=== PATIENT | female | born 1935 | race Caucasian/White ===

== ENCOUNTER 2017-10-28 05:22 | Emergency (ER) | payer BC ==
[~2017-10-28] VITALS: Ht 160 cm; Wt 79.2 kg
[2017-10-28 05:29] VITALS: TEMP 37.2; Ht 160 cm; Wt 79.2 kg
[2017-10-28 05:35] VITALS: O2SAT 95
[2017-10-28] MEDS ORDERED: SODIUM CHLORIDE 0.9% 500ML 500 ML IV STA (05:35)
--- NOTE | 2017-10-28 05:38 | EMERGENCY ROOM VISIT NOTE ---
History Report prepared by Vibha: Xiomy Larson Under the Supervision of: Dr. Luisa Pringle D.O. 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 She reports her fell out of bed and cut his head. When she got out of bed to help, she got up too quickly and became lightheaded. She went to her bathroom to get a washcloth and when she was cleaning his forehead, she passed out. She notes she only ate toast throughout the day and spent most of today lying on the couch. She states she went to the doctor 5 days bellhop captain due to a rash and feeling like she had the flu in the evenings with hot spells and cold chills.. The patient is currently taking hydrochlorothiazide. Source of History: patient Onset: around 1 hour bellhop captain Position: other (global) Quality: other (syncopal episode) Associated Symptoms: + weakness Review of Systems See HPI for pertinent positives & negatives. A total of 10 systems reviewed and were otherwise negative. Past Medical & Surgical Medical Problems: (1) No significant past medical history Hypertension Hyperlipidemia Diabetes Family History No pertinent family history Social History Smoking Status: Unknown if Ever Smoked Smokeless Tobacco Use: Unknown Marital Status: Housing Status: lives with significant other Occupation Status: retired Current/Historical Medications Scheduled Aspirin (Aspirin Ec), 81 MG PO DAILY Atorvastatin (Lipitor), 40 MG PO DAILY Cholecalciferol (Vitamin D 400 Iu), 400 INTER.UNIT PO DAILY Felodipine (Felodipine ER), 5 MG PO DAILY Hydrochlorothiazide (Hctz), 12.5 MG PO DAILY Hydrocortisone (Hydrocortisone 2.5%), 1 APPLN TOP TID Insulin Glargine (Lantus Solostar), 15 UNITS SC HS Losartan Potassium (Cozaar), 25 MG PO DAILY Magnesium Oxide (Mg Supplement (Magnesium), 500 MG PO DAILY Metformin Hcl (Glucophage), 1,000 MG PO BID Repaglinide (Prandin), 4 MG PO BIDM Repaglinide (Prandin), 2 MG PO with a snack Sertraline (Zoloft), 25 MG PO DAILY Scheduled PRN Hydroxyzine HCl (Hydroxyzine HCl), 25 MG PO Q6 PRN for Itching Allergies Coded Allergies: No Known Allergies (Unverified , 10/28/17) Physical Exam Vital Signs Date Time Temp Pulse Resp B/P (MAP) Pulse Ox O2 Delivery O2 Flow Rate FiO2 10/28/17 05:49 101 18 141/88 99 153/94 110 137/85 10/28/17 05:49 101 18 141/88 96 Room Air 10/28/17 05:39 108 10/28/17 05:35 95 Room Air 10/28/17 05:29 37.2 109 18 153/102 94 Room Air Physical Exam General: Pale in appearance. HEENT: Head - normocephalic and atraumatic Pupils are equal, round, and reactive to light. Extraocular eye muscles are intact, and sclera are anicteric. Nose - moist nasal mucosa without discharge. Mouth - moist buccal mucosa. Oropharynx is nonerythematous and there is no tonsillar exudate or edema noted. Neck: Supple; no JVD, nuchal rigidity, cervical lymphadenopathy, no auscultated bruits. Heart: Regular rate and rhythm. There is a normal S1 and S2 with no murmurs, clicks, or gallops appreciated. Lungs: Clear to auscultation bilaterally with no wheezes, rales, or rhonchi. Abdomen: Soft, completely nontender, nondistended, with good bowel sounds. There are no palpable pulsatile masses or hepatosplenomegaly. There is no guarding, rigidity, or rebound noted. Extremities: No evidence of cyanosis, clubbing, or edema. There are easily palpable peripheral pulses. Skin: warm and dry with good turgor and no rashes. Medical Decision & Procedures Laboratory Results 10/28/17 05:45 Red Blood Count 4.82, Mean Corpuscular Volume 83.2, Mean Corpuscular Hemoglobin 28.4, Mean Corpuscular Hemoglobin Concent 34.2, Mean Platelet Volume 11.0, Neutrophils (%) (Auto) 74.4, Lymphocytes (%) (Auto) 17.6, Monocytes (%) (Auto) 6.6, Eosinophils (%) (Auto) 0.9, Basophils (%) (Auto) 0.2, Neutrophils # (Auto) 6.47, Lymphocytes # (Auto) 1.53, Monocytes # (Auto) 0.57, Eosinophils # (Auto) 0.08, Basophils # (Auto) 0.02 10/28/17 05:45 Test 10/28/17 05:45 White Blood Count 8.70 K/uL (4.8-10.8) Red Blood Count 4.82 M/uL (4.2-5.4) Hemoglobin 13.7 g/dL (12.0-16.0) Hematocrit 40.1 % (37-47) Mean Corpuscular Volume 83.2 fL (80-100) Mean Corpuscular Hemoglobin 28.4 pg (25-34) Mean Corpuscular Hemoglobin Concent 34.2 g/dl (32-36) Platelet Count 187 K/uL (130-400) Mean Platelet Volume 11.0 fL (7.4-10.4) Neutrophils (%) (Auto) 74.4 % Lymphocytes (%) (Auto) 17.6 % Monocytes (%) (Auto) 6.6 % Eosinophils (%) (Auto) 0.9 % Basophils (%) (Auto) 0.2 % Neutrophils # (Auto) 6.47 K/uL (1.4-6.5) Lymphocytes # (Auto) 1.53 K/uL (1.2-3.4) Monocytes # (Auto) 0.57 K/uL (0.11-0.59) Eosinophils # (Auto) 0.08 K/uL (0-0.5) Basophils # (Auto) 0.02 K/uL (0-0.2) RDW Standard Deviation 39.0 fL (36.4-46.3) RDW Coefficient of Variation 12.9 % (11.5-14.5) Immature Granulocyte % (Auto) 0.3 % Immature Granulocyte # (Auto) 0.03 K/uL (0.00-0.02) Anion Gap 11.0 mmol/L (3-11) Est Creatinine Clear Calc Drug Dose 53.3 ml/min Estimated GFR () 78.4 Estimated GFR (Non- 67.6 BUN/Creatinine Ratio 15.7 (10-20) Calcium Level 9.2 mg/dl (8.5-10.1) Total Bilirubin 0.5 mg/dl (0.2-1) Direct Bilirubin 0.2 mg/dl (0-0.2) Aspartate Amino Transf (AST/SGOT) 55 U/L (15-37) Alanine Aminotransferase (ALT/SGPT) 27 U/L (12-78) Alkaline Phosphatase 68 U/L (45-117) Troponin I < 0.015 ng/ml (0-0.045) Total Protein 7.6 gm/dl (6.4-8.2) Albumin 3.2 gm/dl (3.4-5.0) Thyroid Stimulating Hormone (TSH) 0.842 uIu/ml (0.300-4.500) Laboratory results per my review. Medications Administered Medications (Trade) Dose Ordered Sig/Caren Route Start Time Stop Time Status Last Admin Dose Admin Sodium Chloride 500 ml @ 999 mls/hr Q31M STAT IV 10/28/17 05:35 10/28/17 06:05 DC 10/28/17 05:35 999 MLS/HR Procedure NSS IV ECG Per My Interpretation Indication: syncope Rate (beats per minute): 107 Rhythm: sinus tachycardia Findings: Q waves (Inferior), no acute ischemic change, other (no obvious ST segment elevation) Comparison ECG Date: 08/2013 Change: no significant change ED Course 0528: Past medical records reviewed. The patient was evaluated in room B9. A complete history and physical exam was performed. Nursing notes and previous electronic medical records were reviewed. IV lock was established and labs were drawn as above. A 12-lead EKG was obtained as described above. 0535: Ordered Sodium Chloride 500 ml @ 999 mls/hr IV. 0648: I checked on the patient at this time. She is feeling much better. She is going to try to drink and eat. 0709: Upon reevaluation, the patient's vitals are stable. She was able to drink mayuri devante and eat crackers without difficulty. I discussed findings and results with her. She verbalized agreement of the treatment plan. She was discharged home. Medical Decision The patient is a 82 year old female who presents to the Emergency Room with complaints of a syncopal episode beginning around 1 hour bellhop captain. Differential diagnosis includes vasovagal syncope, dehydration, orthostasis, anemia, as well as others were entertained. Lab results show No leukocytosis Stable H and H Potassium is low at 3.1 Normal renal function Glucose 164 Troponin is negative Normal TSH Normal LFTs This is an 82-year-old female patient presents to the emergency department after an episode of syncope. The patient had been weak and not feeling well over the past couple of days. She spent most of the day on the couch yesterday. The patient had only eaten toast throughout the day today. It seems that the patient got up quickly when her fell to the ground and then she had a syncopal event herself. The patient had orthostatic vital signs performed in her heart rate did elevate when she stood up. She received some IV fluids here in the emergency department which brought her heart rate down nicely. The patient is resting comfortably at this time. She was able to eat and drink without difficulty. I have asked the patient to take a well-balanced diet and plenty of clear liquids. She is to follow-up with her PCP tomorrow for recheck Medication Reconcilliation Current Medication List: was personally reviewed by me Blood Pressure Screening Patient's blood pressure: Elevated blood pressure Blood pressure disposition: Elevated BP felt to be situational Impression Primary Impression: Syncope Scribe Attestation The scribe's documentation has been prepared under my direction and personally reviewed by me in its entirety. I confirm that the note above accurately reflects all work, treatment, procedures, and medical decision making performed by me. Departure Information Dispostion Home / Self-Care Referrals No Doctor, Assigned (PCP) Forms HOME CARE DOCUMENTATION FORM, IMPORTANT VISIT INFORMATION Patient Instructions My [facility] Additional Instructions Rest. Take plenty of clear liquids and a well-blanced diet. Move slowly. Follow up with PCP on Sunday for a recheck. Return to the ER if you have further episodes of passing out. Problem Qualifiers Primary Impression: Syncope Syncope type: unspecified Qualified Codes: R55 - Syncope and collapse
[2017-10-28 06:05] LABS: BASO % 0.2 %; BASO ABS # 0.02 K/uL (0-0.2); EOS % 0.9 %; EOS ABS # 0.08 K/uL (0-0.5); HEMATOCRIT 40.1 % (37-47); HEMOGLOBIN 13.7 g/dL (12.0-16.0); IG# 0.03 K/uL (0.00-0.02); LYMPH % 17.6 %; LYMPH ABS # 1.53 K/uL (1.2-3.4); MEAN CELL VOLUME 83.2 fL (80-100); MEAN CORPUSCULAR HEMOGLOBIN 28.4 pg (25-34); MEAN CORPUSCULAR HGB CONC 34.2 g/dl (32-36); MONO % 6.6 %; MONO ABS # 0.57 K/uL (0.11-0.59); NEUT % 74.4 %; NEUT ABS # 6.47 K/uL (1.4-6.5); PLATELET COUNT 187 K/uL (130-400); RED CELL DISTRIBUTION WIDTH CV 12.9 % (11.5-14.5)
[2017-10-28] MEDS ORDERED: CHOL400C7 PO (06:19)
[2017-10-28] MEDS ORDERED: ASPI81TA28 PO (06:19)
[2017-10-28] MEDS ORDERED: INSDGIPEN SC (06:21)
[2017-10-28] MEDS ORDERED: PLN5 PO (06:21)
[2017-10-28] MEDS ORDERED: LPT/40 PO (06:21)
[2017-10-28] MEDS ORDERED: METF-384 PO (06:21)
[2017-10-28] MEDS ORDERED: LOSA1TAB PO (06:24)
[2017-10-28] MEDS ORDERED: REPA2TAB12 PO ×2 (06:24)
[2017-10-28] MEDS ORDERED: SERT25TA PO (06:24)
[2017-10-28] MEDS ORDERED: MAGN500C PO (06:24)
[2017-10-28] MEDS ORDERED: HYDR25TA4 PO (06:25)
[2017-10-28] MEDS ORDERED: ATR25 PO (06:26)
[2017-10-28] MEDS ORDERED: ANSHCCR/ TOP (06:27)
[2017-10-28 06:31] LABS: ALBUMIN 3.2 gm/dl (3.4-5.0); ALKALINE PHOSPHATASE 68 U/L (45-117); ALT/SGPT 27 U/L (12-78); AST/SGOT 55 U/L (15-37); BLOOD UREA NITROGEN 13 mg/dl (7-18); CALCIUM 9.2 mg/dl (8.5-10.1); CARBON DIOXIDE 27 mmol/L (21-32); CREATININE 0.81 mg/dl (0.60-1.20); GLUCOSE 164 mg/dl (70-99); POTASSIUM 3.1 mmol/L (3.5-5.1); SODIUM 138 mmol/L (136-145); TOTAL PROTEIN 7.6 gm/dl (6.4-8.2)
[2017-10-28 07:30] VITALS: BP 136/83; PULSE 96; O2SAT 96
== END 2017-10-28 07:51 | disposition home or self-care (01) ==
LOC: EDBD 05:22 → C.EDB 05:23
DX: R55 Syncope and collapse (principal); I10 Essential (primary) hypertension; E11.9 Type 2 diabetes mellitus without complications; E78.5 Hyperlipidemia, unspecified; Z79.4 Long term (current) use of insulin; Z79.899 Other long term (current) drug therapy; Z79.82 Long term (current) use of aspirin; Z79.84 Long term (current) use of oral hypoglycemic drugs

== ENCOUNTER 2023-01-17 16:12 | Inpatient (IN) ==
[2023-01-17] MEDS ORDERED: ACETAMINOPHEN 500 MG TAB PO STA (16:28)
[2023-01-17] MEDS ORDERED: ONDANSETRON INJ 2 MG/ML 2 ML VIAL IV STA (16:28)
--- NOTE | 2023-01-17 17:31 | CT Scan Report ---
CT abd pelvis wo con CLINICAL HISTORY: left flank pain TECHNIQUE: Helical axial images of the abdomen and pelvis were obtained. Automated dose lowering tech niques and/or adjustment according to patient size were utilized for this exam. This exam was perfor med without intravenous contrast. CT DOSE: 1090.09 mGy.cm COMPARISON: None available at the time of this dictation. FINDINGS: Lower chest: Bronchiectasis is seen. Biatrial enlargement is seen. Mitral annular calcifications are noted. Liver: Unremarkable. No focal lesions are seen. Gallbladder and biliary tree: No calcified gallstones. Normal caliber wall. No intra- or extrahepatic biliary ductal dilation. Pancreas: Unremarkable, no focal lesions. Spleen: Unremarkable. Adrenals: Unremarkable. Kidneys and ureters: Left hydronephrosis is seen with a 8 mm stone at the pelvis. Bladder: Unremarkable. Reproductive organs: Unremarkable. Bowel: Diverticulosis is seen without evidence of diverticulitis. Patient is status post appendectomy . A hiatal hernia is seen. Lymph nodes Retroperitoneal: Unremarkable. Pelvic: Unremarkable. Mesenteric: Unremarkable. Peritoneum: Normal. Vessels: Atherosclerotic calcifications are seen. Abdominal wall: Unremarkable. Bones: Degenerative changes in the visualized spine. IMPRESSION: 1. Left hydronephrosis with a UPJ stone measuring 8 mm. 2. Diverticulosis without diverticulitis. 3. Hiatal hernia. ACT 112: Negative or not required by law. Electronically signed by: Kelby Dinh M.D. 01/17/2023 5:29 PM
[2023-01-17 18:30] LABS: Basophils # (auto) 0.03 K/uL (0.00-0.20); Basophils % (auto) 0.2 %; Eosinophils # (auto) 0.04 K/uL (0.00-0.50); Eosinophils % (auto) 0.3 %; Hematocrit (blood only) 48.9 % (37.0-47.0); Hemoglobin 16.2 g/dl (12.0-16.0); Immature Granulocytes # (auto) 0.06 K/uL (0.01-0.20); Immature Granulocytes % (auto) 0.5 %; Lymphocytes # (auto) 1.63 K/uL (1.20-3.40); Lymphocytes % (auto) 12.6 %; Mean Corpuscular Hemoglobin 28.9 pg (25.0-34.0); Mean Corpuscular Hgb Conc 33.1 g/dL (32.0-36.0); Mean Corpuscular Volume 87.2 fL (80.0-100.0); Monocytes # (auto) 0.66 K/uL (0.11-0.59); Monocytes % (auto) 5.1 %; Neutrophils # (auto) 10.53 K/uL (1.40-6.50); Neutrophils % (auto) 81.3 %; Platelet Count 265 K/uL (130-400); RDW Coefficient of Variation 12.2 % (11.5-14.5); Red Blood Count 5.61 M/uL (4.20-5.40); White Blood Count 12.95 K/ul (4.8-10.8)
[2023-01-17 18:41] LABS: Alanine Aminotransferase 9 U/L (7-52); Albumin Globulin Ratio 1.3 (0.9-2); Albumin Level 4.5 gm/dl (3.4-5.0); Alkaline Phosphatase 83 U/L (34-104); Anion Gap 7 (3-11); Aspartate Aminotransferase 15 U/L (13-39); Bilirubin,Total 0.5 mg/dl (0.2-1.0); Blood Urea Nitrogen 19 mg/dl (6-23); Calcium 10.1 mg/dl (8.6-10.3); Carbon Dioxide 28 mmol/L (21-32); Chloride 106 mmol/L (98-107); Est GFR (African American) 58.7 ml/min; Est GFR (Non-African American) 50.6 ml/min; Globulin 3.5 gm/dl (2.5-4.0); Glucose 148 mg/dl (70-99(Fasting)); Lipase 41 U/L (11-82); Potassium 3.7 mmol/L (3.5-5.1); Sodium 141 mmol/L (136-145)
[2023-01-17] MEDS ORDERED: oxyCODONE HCL IR 5 MG TAB (IMMEDIATE RELEASE) PO STA ×2 (19:07→20:55)
[2023-01-17] MEDS ORDERED: ONDANSETRON 4 MG OD TAB PO STA (19:07)
[2023-01-17 19:17] LABS: Appearance Urine Cloudy (Clear); Bacteria Urine Automated 4+ (Negative); Bilirubin Urine Negative (Negative); Blood Urine 3+ (Negative); Cast Urine Automated 0 /lpf (0-5); Color Urine Orange; Glucose Urine UA 3+ (Negative); Ketones Urine Negative (Negative); Leukocyte Esterase Urine Negative (Negative); Nitrite Urine Positive (Negative); Protein Urine 1+ (Negative); RBC Urine Automated >30 /hpf (0-4); Specific Gravity Urine 1.033 (1.000-1.030); Urobilinogen Urine Negative (Negative); pH Urine 5.5 (4.5-7.5)
--- NOTE | 2023-01-17 19:24 | Emergency Department Note ---
Impression & Plan Renal colic, Flank Pain, Hydronephrosis, UTI (urinary tract infection), Leukocytosis ED Provider Note NAME: JR DOYLE AGE: 87 SEX: F : 1935 ARRIVES VIA: Walk-In INFORMANT: Patient ED PROVIDER(S): Bennie Bird DO CHIEF COMPLAINT: left flank pain HPI: Patient is an 87-year-old female who presents to the ER for left flank pain. This started around lunchtime today. It radiates to her left abdomen. She admits to some slight nausea. She has been taking Motrin but notes that this only helped slightly with the pain. Denies any headache or change in v ision. No chest pain or shortness of breath. No dysuria, urgency, or frequency. No blood in the urine. Does have a history of previous kidney stones. This was about 50 years ago. No other exacerbating or remitting factors. ADDITIONAL HISTORY OBTAINED: Per HPI Chronic Medical/Social Conditions Affecting Care: Per HPI PAST MEDICAL HISTORY:See Below PAST SURGICAL HISTORY:See Below FAMILY HISTORY:See Below SOCIAL HISTORY:See Below HOME MEDICATIONS:See Below ALLERGIES:See Below VITALS:See Below PHYSICAL EXAMINATION: GENERAL: Sitting up in bed, alert, well appearing, well nourished, no distress, non-toxic EYE EXAM: normal conjunctiva. OROPHARYNX: no exudate, no erythema, lips, buccal mucosa, and tongue normal and mucous membranes are moist NECK: supple, no nuchal rigidity, no adenopathy, non-tender LUNGS: Clear to auscultation. Normal chest wall mechanics HEART: no murmurs, S1 normal and S2 normal ABDOMEN: abdomen soft, non-tender, normo-active bowel sounds, no masses, no rebound or guarding. BACK: Back is symmetrical on inspection and there is no deformity, no midline tenderness, no CVA tenderness. UPPER EXTREMITIES: upper extremities are grossly normal. LOWER EXTREMITIES: No pitting edema. NEURO EXAM: Normal sensorium, cranial nerves II-XII grossly intact, normal speech, no gross weakness of arms, no gross weakness of legs. MEDICAL DECISION MAKING: Patient is a an 87-year-old female who presents ER for above-stated complaint. IV was established blood work is obtained. Labs show mild leukocytosis of 12,000. No significant anemia. BMP along with LFTs bilirubin lipase is unremarkable. UA with nitrates, white cells and +4 bacteria with a slightly contaminated urine with only 10-20 epithelial cells. With this patient was given IV fluids, and IV antibiotics. I did update urology as well as the hospitalist and patient was admitted for further evaluation for renal colic with hydronephrosis and possible UTI. External Records Reviewed: None Consults/Care Managements Discussions: Per MDM Triage Nursing notes reviewed. Limited review of prior medical records performed Vital Signs: reviewed and remarkable for HTN Differential diagnosis: Differential diagnoses includes but is not limited to gastritis, peptic ulcer disease, GERD, gallbladder disease, pancreatitis, small bowel obstruction, appendicitis, diverticulitis, hernia, urinary tract infection, torsion,, perforation, trauma, infectious. ER treatment provided: See below Diagnostics interpreted by me include EKG and cardiac monitoring as listed below: -ECG: none -Laboratory studies:Interpreted by me as stated above in MDM and shown below. Imaging studies: Xrays: As interpreted by me:none CTs show: CT abdomen pelvis per my read showed hydronephrosis CT abdomen pelvis per radiology as described above Procedures:none Critical Care: None Past Med/Surg History Social History Smoking Status: Never smoker Preferred Language: Uzbek Feels Safe at Home: Yes Allergies Allergies Allergy/AdvReac Type Severity Reaction Status Date / Time No Known Allergies Allergy Unverified 01/17/23 20:29 Home Meds Home Medications Medication Instructions Recorded Confirmed Collagen Hydrolysate 1 dose PO DAILY 01/17/23 01/17/23 ascorbic acid (vitamin C) 500 mg 500 mg PO DAILY 01/17/23 01/17/23 chewable tablet (Vitamin C) cholecalciferol (vitamin D3) 10 10 mcg PO DAILY 01/17/23 01/17/23 mcg (400 unit) tablet (Vitamin D3) cyanocobalamin (vitamin B-12) 1,000 mcg PO DAILY 01/17/23 01/17/23 1,000 mcg tablet (Vitamin B-12) empagliflozin 25 mg tablet 25 mg PO DAILY 01/17/23 01/17/23 (Jardiance) famotidine 20 mg tablet 20 mg PO AMHS 01/17/23 01/17/23 felodipine 5 mg tablet,extended 5 mg PO QAM 01/17/23 01/17/23 release 24 hr fluoxetine 20 mg capsule 20 mg PO DAILY 01/17/23 01/17/23 insulin glargine 100 unit/mL (3 15 unit subcut QPM 01/17/23 01/17/23 mL) subcutaneous pen (Lantus Solostar U-100 Insulin) losartan 25 mg tablet 25 mg PO QAM 01/17/23 01/17/23 omeprazole 20 mg capsule,delayed 20 mg PO QAM 01/17/23 01/17/23 release semaglutide 0.25 mg or 0.5 mg (2 0.5 mg subcut WE 01/17/23 01/17/23 mg/3 mL) subcutaneous pen injector (Ozempic) triamcinolone acetonide 0.1 % 1 applic topical BID PRN .flare ups 01/17/23 01/17/23 topical cream trolamine salicylate 10 % topical 1 applic topical QID PRN Pain 01/17/23 01/17/23 cream (Aspercreme) Results & Data (ED) Vital Signs Vital Signs - 24 hr 01/17/23 16:26 01/17/23 19:21 Temperature 36.6 C Temperature Source Temporal Artery Scan Pulse Rate 83 Pulse Rate [Right Finger] 86 Respiratory Rate 16 16 Respiratory Effort / Characteristics Non-Labored Spontaneous Non-Labored Spontaneous Respiratory Depth Normal Normal Respiratory Pattern Regular Blood Pressure 198/100 H Blood Pressure [Right Arm] 166/109 H Blood Pressure Mean 132 Blood Pressure Mean [Right Arm] 128 Pulse Oximetry 98 97 Oxygen Delivery Method Room Air Room Air Sepsis Recent Fever Within 48 Hours No Sepsis New/Unexplained Change in Mental Status No Sepsis Action Taken by Nursing No Action Required Laboratory Data 01/17/23 18:08 01/17/23 18:08 Lab Results 01/17/23 01/17/23 01/17/23 Range/Units 16:29 18:08 18:08 WBC 12.95 H (4.8-10.8) K/ul RBC 5.61 H (4.20-5.40) M/uL Hgb 16.2 H (12.0-16.0) g/dl Hct 48.9 H (37.0-47.0) % MCV 87.2 (80.0-100.0) fL MCH 28.9 (25.0-34.0) pg MCHC 33.1 (32.0-36.0) g/dL RDW Std Deviation 39.0 (36.4-46.3) fL RDW Coeff of Augustina 12.2 (11.5-14.5) % Plt Count 265 (130-400) K/uL MPV 11.0 (9.4-12.4) fL Immature Gran % (Auto) 0.5 % Neut % (Auto) 81.3 % Lymph % (Auto) 12.6 % [place] % (Auto) 5.1 % Eos % (Auto) 0.3 % Baso % (Auto) 0.2 % Neut # (Auto) 10.53 H (1.40-6.50) K/uL Lymph # (Auto) 1.63 (1.20-3.40) K/uL [place] # (Auto) 0.66 H (0.11-0.59) K/uL Eos # (Auto) 0.04 (0.00-0.50) K/uL Baso # (Auto) 0.03 (0.00-0.20) K/uL Immature Gran # (Auto) 0.06 (0.01-0.20) K/uL Sodium 141 (136-145) mmol/L Potassium 3.7 (3.5-5.1) mmol/L Chloride 106 (98-107) mmol/L Carbon Dioxide 28 (21-32) mmol/L Anion Gap 7 (3-11) BUN 19 (6-23) mg/dl Creatinine 1.00 (0.6-1.2) mg/dl Est Cr Clr Drug Dosing Not Reportable Est GFR ( Amer) 58.7 ml/min Est GFR (Non-Af Amer) 50.6 ml/min BUN/Creatinine Ratio 19.0 (10-20) Glucose 148 H (70-99(Fasting)) mg/dl POC Glucose 205 H (70-99) mg/dl Calcium 10.1 (8.6-10.3) mg/dl Total Bilirubin 0.5 (0.2-1.0) mg/dl AST 15 (13-39) U/L ALT 9 (7-52) U/L Alkaline Phosphatase 83 (34-104) U/L Total Protein 8.0 (6.0-8.3) gm/dl Albumin 4.5 (3.4-5.0) gm/dl Globulin 3.5 (2.5-4.0) gm/dl Albumin/Globulin Ratio 1.3 (0.9-2) Lipase 41 (11-82) U/L Urine Color Urine Appearance (Clear) Urine pH (4.5-7.5) Ur Specific [place] (1.000-1.030) Urine Protein (Negative) Urine Glucose (UA) (Negative) Urine Ketones (Negative) Urine Blood (Negative) Urine Nitrite (Negative) Urine Bilirubin (Negative) Urine Urobilinogen (Negative) Ur Leukocyte Esterase (Negative) Urine WBC (Auto) (0-5) /hpf Urine RBC (Auto) (0-4) /hpf U Hyaline Cast (Auto) (0-5) /lpf U Epithel Cells (Auto) (0-5) /lpf Urine Bacteria (Auto) (Negative) 01/17/23 Range/Units 19:01 WBC (4.8-10.8) K/ul RBC (4.20-5.40) M/uL Hgb (12.0-16.0) g/dl Hct (37.0-47.0) % MCV (80.0-100.0) fL MCH (25.0-34.0) pg MCHC (32.0-36.0) g/dL RDW Std Deviation (36.4-46.3) fL RDW Coeff of Augustina (11.5-14.5) % Plt Count (130-400) K/uL MPV (9.4-12.4) fL Immature Gran % (Auto) % Neut % (Auto) % Lymph % (Auto) % [place] % (Auto) % Eos % (Auto) % Baso % (Auto) % Neut # (Auto) (1.40-6.50) K/uL Lymph # (Auto) (1.20-3.40) K/uL [place] # (Auto) (0.11-0.59) K/uL Eos # (Auto) (0.00-0.50) K/uL Baso # (Auto) (0.00-0.20) K/uL Immature Gran # (Auto) (0.01-0.20) K/uL Sodium (136-145) mmol/L Potassium (3.5-5.1) mmol/L Chloride (98-107) mmol/L Carbon Dioxide (21-32) mmol/L Anion Gap (3-11) BUN (6-23) mg/dl Creatinine (0.6-1.2) mg/dl Est Cr Clr Drug Dosing Est GFR ( Amer) ml/min Est GFR (Non-Af Amer) ml/min BUN/Creatinine Ratio (10-20) Glucose (70-99(Fasting)) mg/dl POC Glucose (70-99) mg/dl Calcium (8.6-10.3) mg/dl Total Bilirubin (0.2-1.0) mg/dl AST (13-39) U/L ALT (7-52) U/L Alkaline Phosphatase (34-104) U/L Total Protein (6.0-8.3) gm/dl Albumin (3.4-5.0) gm/dl Globulin (2.5-4.0) gm/dl Albumin/Globulin Ratio (0.9-2) Lipase (11-82) U/L Urine Color [place] Urine Appearance Cloudy A (Clear) Urine pH 5.5 (4.5-7.5) Ur Specific [place] 1.033 H (1.000-1.030) Urine Protein 1+ H (Negative) Urine Glucose (UA) 3+ H (Negative) Urine Ketones Negative (Negative) Urine Blood 3+ H (Negative) Urine Nitrite Positive A (Negative) Urine Bilirubin Negative (Negative) Urine Urobilinogen Negative (Negative) Ur Leukocyte Esterase Negative (Negative) Urine WBC (Auto) 10-30 H (0-5) /hpf Urine RBC (Auto) >30 H (0-4) /hpf U Hyaline Cast (Auto) 0 (0-5) /lpf U Epithel Cells (Auto) 10-20 H (0-5) /lpf Urine Bacteria (Auto) 4+ H (Negative) Administered Medications Sodium Chloride (Nss) 1,000 mls @ 75 mls/hr IV .[id number] ONE Stop: 01/18/23 10:14 Last Admin: 01/17/23 23:17 Dose: 75 mls/hr Documented By: RIZWANA Insulin Aspart (Insulin Aspart Per Unit Charge) 0 units SC Q6 [facility] Stop: 02/16/23 23:14 Last Admin: 01/17/23 23:24 Dose: 1 units Documented By: RIZWANA Co-signed By: DMM Insulin Glargine (Lantus Per Unit Charge) 15 units SC QPM [facility] Stop: 02/16/23 23:14 Last Admin: 01/17/23 23:25 Dose: Not Given Documented By: RIZWANA Morphine Sulfate (Morphine Sulfate 2 Mg/Ml Carp) 2 mg IV Q3H PRN PRN Reason: Pain Stop: 01/31/23 20:54 Last Admin: 01/17/23 23:26 Dose: 2 mg Documented By: RIZWANA Discontinued Medications Acetaminophen (Acetaminophen 500 Mg Tab) 1,000 mg PO NOW STA Stop: 01/17/23 16:29 Last Admin: 01/17/23 19:05 Dose: Not Given Documented By: DA Ceftriaxone Sodium (Rocephin) 2,000 mg in 50 mls @ 100 mls/hr IV NOW STA Stop: 01/17/23 20:25 Last Infusion: 01/17/23 22:08 Dose: 0 mls/hr Documented By: Admin: 01/17/23 20:24 Dose: 100 mls/hr Documented By: DA Sodium Chloride (Nss) 1,000 mls @ 999 mls/hr IV .[id number] ONE Stop: 01/17/23 20:56 Last Infusion: 01/17/23 22:58 Dose: 0 mls/hr Documented By: Admin: 01/17/23 20:24 Dose: 999 mls/hr Documented By: DA Losartan Potassium (Losartan Potassium 25 Mg Tab) 25 mg PO NOW STA Stop: 01/17/23 20:10 Last Admin: 01/17/23 21:54 Dose: 25 mg Documented By: DA Ondansetron HCl (Ondansetron Inj 2 Mg/Ml 2 Ml Vial) 4 mg IV NOW STA Stop: 01/17/23 16:29 Last Admin: 01/17/23 19:06 Dose: Not Given Documented By: DA Ondansetron HCl (Ondansetron 4 Mg Od Tab) 4 mg PO NOW STA Stop: 01/17/23 19:08 Last Admin: 01/17/23 19:17 Dose: 4 mg Documented By: DA Oxycodone HCl (Oxycodone Hcl Ir 5 Mg Tab (Immediate Release)) 5 mg PO NOW STA Stop: 01/17/23 19:08 Last Admin: 01/17/23 19:17 Dose: 5 mg Documented By: DA Oxycodone HCl (Oxycodone Hcl Ir 5 Mg Tab (Immediate Release)) 5 mg PO NOW STA Stop: 01/17/23 20:56 Last Admin: 01/17/23 21:54 Dose: 5 mg Documented By: DA Imaging Data Radiologist's Impression: Abdomen/Pelvis CT 01/17/23 16:32 CT abd pelvis wo con CLINICAL HISTORY: left flank pain TECHNIQUE: Helical axial images of the abdomen and pelvis were obtained. Automat ed dose lowering techniques and/or adjustment according to patient size were utilized for this exam. This exam was performed without intravenous contrast. CT DOSE: 1090.09 mGy.cm COMPARISON: None available at the time of this dictation. FINDINGS: Lower chest: Bronchiectasis is seen. Biatrial enlargement is seen. Mitral annular calcifications are noted. Liver: Unremarkable. No focal lesions are seen. Gallbladder and biliary tree: No calcified gallstones. Normal caliber wall. No intra- or extrahepatic biliary ductal dilation. Pancreas: Unremarkable, no focal lesions. Spleen: Unremarkable. Adrenals: Unremarkable. Kidneys and ureters: Left hydronephrosis is seen with a 8 mm stone at the pelvis. Bladder: Unremarkable. Reproductive organs: Unremarkable. Bowel: Diverticulosis is seen without evidence of diverticulitis. Patient is status post appendectomy. A hiatal hernia is seen. Lymph nodes Retroperitoneal: Unremarkable. Pelvic: Unremarkable. Mesenteric: Unremarkable. Peritoneum: Normal. Vessels: Atherosclerotic calcifications are seen. Abdominal wall: Unremarkable. Bones: Degenerative changes in the visualized spine. IMPRESSION: 1. Left hydronephrosis with a UPJ stone measuring 8 mm. 2. Diverticulosis without diverticulitis. 3. Hiatal hernia. ACT 112: Negative or not required by law. Electronically signed by: Kelby Dinh M.D. 01/17/2023 5:29 PM Discharge Plan Visit Data Chief Complaint: Flank Pain Stated Complaint: FLANK PAIN, ?KIDNEY STONE, NAUSEA ED Provider: Bennie Bird Discharge Problem: Renal colic, Flank Pain, Hydronephrosis, UTI (urinary tract infection), Leukocytosis Patient Disposition: Admitted As Inpatient Discharge Instructions Interventions: ED Discharge Assessment Last Done: 01/17/23 22:00
[2023-01-17] MEDS ORDERED: cefTRIAXone SODIUM 2,000 MG/50 ML BAG IV STA (19:56)
[2023-01-17] MEDS ORDERED: SODIUM CHLORIDE 0.9% 1,000 ML IV ONE ×2 (19:56→20:55)
[2023-01-17] MEDS ORDERED: LOSARTAN POTASSIUM 25 MG TAB PO STA (20:09)
--- NOTE | 2023-01-17 20:51 | History & Physical Report ---
Date of Service January 17, 2023 Assessment & Plan (1) Complicated UTI (urinary tract infection): Plan: Secondary to obstructive uropathy Recurrent urolithiasis no sepsis for now Hypertensive urgency secondary to above Hyperlipidemia on statin Rx DM2 insulin requiring, well-controlled as of recent hemoglobin A1c of 6.8 this month GMF Urine CS, Ceftriaxone Strain urine Urology consult Re: Kidney stone (ER provider already in touch with Dr. Goldsmith who recommends n.p.o. status until patient seen by urology in a.m. in anticipation of possible procedure.) analgesia, titrate home BP meds Basal bolus insulin adjusted for n.p.o. status, ISS BG goal 1 10-1 40 DVT prophylaxis. Lovenox subcu Full code Text document was generated using [employer] voice recognition software. It may contain grammatical or spelling errors. Kindly contact undersigned for clarification of any documentation item in question. History of Present Illness Chief Complaint: Left flank pain Primary Care Provider: Stephen Tompkins DO History obtained from patient and records. Medical history significant for HTN, mild aortic stenosis (TTE 2022), hyperlipidemia, DM2 insulin requiring, urolithiasis. Patient had sudden onset left-sided flank pain going to the abdomen with nausea symptoms after lunchtime today. Similar to kidney stone attack from 50 years ago. No chest pain, no SOB, no fever, no chills, no headache symptoms. Initial SBP at the ER 190s. SBP currently 160s. IV ceftriaxone administered at the ER. 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 Allergies Allergy/AdvReac Type Severity Reaction Status Date / Time No Known Allergies Allergy Unverified 01/17/23 20:29 Home Medications Medication Instructions Recorded Confirmed Type Collagen Hydrolysate 1 dose PO DAILY 01/17/23 01/17/23 History ascorbic acid (vitamin C) 500 mg 500 mg PO DAILY 01/17/23 01/17/23 History chewable tablet (Vitamin C) cholecalciferol (vitamin D3) 10 10 mcg PO DAILY 01/17/23 01/17/23 History mcg (400 unit) tablet (Vitamin D3) cyanocobalamin (vitamin B-12) 1,000 mcg PO DAILY 01/17/23 01/17/23 History 1,000 mcg tablet (Vitamin B-12) empagliflozin 25 mg tablet 25 mg PO DAILY 01/17/23 01/17/23 History (Jardiance) famotidine 20 mg tablet 20 mg PO AMHS 01/17/23 01/17/23 History felodipine 5 mg tablet,extended 5 mg PO QAM 01/17/23 01/17/23 History release 24 hr fluoxetine 20 mg capsule 20 mg PO DAILY 01/17/23 01/17/23 History insulin glargine 100 unit/mL (3 15 unit subcut QPM 01/17/23 01/17/23 History mL) subcutaneous pen (Lantus Solostar U-100 Insulin) losartan 25 mg tablet 25 mg PO QAM 01/17/23 01/17/23 History omeprazole 20 mg capsule,delayed 20 mg PO QAM 01/17/23 01/17/23 History release semaglutide 0.25 mg or 0.5 mg (2 0.5 mg subcut WE 01/17/23 01/17/23 History mg/3 mL) subcutaneous pen injector (Ozempic) triamcinolone acetonide 0.1 % 1 applic topical BID PRN .flare ups 01/17/23 01/17/23 History topical cream trolamine salicylate 10 % topical 1 applic topical QID PRN Pain 01/17/23 01/17/23 History cream (Aspercreme) Past Med/Surg History Social History Smoking Status: Never smoker Hx Alcohol Use: No Hx Substance Use: No Preferred Language: [place]an Communication Ability: Effective Registered Medical Transcriptionist Required: No Beliefs That Will Affect Care: None Current Living Situation: Spouse Other Information That Helps Us Care for You: No Feels Safe at Home: Yes Safety Concerns: Feels Safe At This Time Assistive Devices: Cane Review of Systems Review of Systems: As per HPI, all other systems reviewed and negative Physical Exam Physical Exam: GENERAL: Comfortable, pleasant, obese, looks younger than stated age, no respira tory distress SKIN: Normal color, warm HEENT: [place] palpebral conjunctivae, no ptosis, dry buccal mucosa NECK : Supple, short neck, no tenderness CHEST : CTA, no tenderness HEART : RRR, no obvious murmurs ABDOMEN: Some distention, minimal left sided abdominal tenderness EXTREMITIES : Minimal LE swelling, no LE tenderness, no other conspicuous deformities noted NEUROLOGIC : Coherent, no facial asymmetry, no other gross focality Results & Data Results & Data Vital Signs (Past 12 Hours) Vital Signs Temp Pulse Pulse Resp BP BP Pulse Ox 01/17/23 19:21 86 16 166/109 H 97 01/17/23 16:26 36.6 C 83 16 198/100 H 98 O2 Del Method 01/17/23 19:21 Room Air 01/17/23 16:26 Room Air Laboratory Results Laboratory Results WBC 12.95 K/ul (4.8-10.8) H 01/17/23 18:08 RBC 5.61 M/uL (4.20-5.40) H 01/17/23 18:08 Hgb 16.2 g/dl (12.0-16.0) H 01/17/23 18:08 Hct 48.9 % (37.0-47.0) H 01/17/23 18:08 MCV 87.2 fL (80.0-100.0) 01/17/23 18:08 MCH 28.9 pg (25.0-34.0) 01/17/23 18:08 MCHC 33.1 g/dL (32.0-36.0) 01/17/23 18:08 RDW Std Deviation 39.0 fL (36.4-46.3) 01/17/23 18:08 RDW Coeff of [place] 12.2 % (11.5-14.5) 01/17/23 18:08 Plt Count 265 K/uL (130-400) 01/17/23 18:08 MPV 11.0 fL (9.4-12.4) 01/17/23 18:08 Immature Gran % (Auto) 0.5 % 01/17/23 18:08 Neut % (Auto) 81.3 % 01/17/23 18:08 Lymph % (Auto) 12.6 % 01/17/23 18:08 [place] % (Auto) 5.1 % 01/17/23 18:08 Eos % (Auto) 0.3 % 01/17/23 18:08 Baso % (Auto) 0.2 % 01/17/23 18:08 Neut # (Auto) 10.53 K/uL (1.40-6.50) H 01/17/23 18:08 Lymph # (Auto) 1.63 K/uL (1.20-3.40) 01/17/23 18:08 [place] # (Auto) 0.66 K/uL (0.11-0.59) H 01/17/23 18:08 Eos # (Auto) 0.04 K/uL (0.00-0.50) 01/17/23 18:08 Baso # (Auto) 0.03 K/uL (0.00-0.20) 01/17/23 18:08 Immature Gran # (Auto) 0.06 K/uL (0.01-0.20) 01/17/23 18:08 Sodium 141 mmol/L (136-145) 01/17/23 18:08 Potassium 3.7 mmol/L (3.5-5.1) 01/17/23 18:08 Chloride 106 mmol/L (98-107) 01/17/23 18:08 Carbon Dioxide 28 mmol/L (21-32) 01/17/23 18:08 Anion Gap 7 (3-11) 01/17/23 18:08 BUN 19 mg/dl (6-23) 01/17/23 18:08 Creatinine 1.00 mg/dl (0.6-1.2) 01/17/23 18:08 Est Cr Clr Drug Dosing Not Reportable 01/17/23 18:08 Est GFR ( Amer) 58.7 ml/min 01/17/23 18:08 Est GFR (Non-Af Amer) 50.6 ml/min 01/17/23 18:08 BUN/Creatinine Ratio 19.0 (10-20) 01/17/23 18:08 Glucose 148 mg/dl (70-99(Fasting)) H 01/17/23 18:08 POC Glucose 205 mg/dl (70-99) H 01/17/23 16:29 Calcium 10.1 mg/dl (8.6-10.3) 01/17/23 18:08 Total Bilirubin 0.5 mg/dl (0.2-1.0) 01/17/23 18:08 AST 15 U/L (13-39) 01/17/23 18:08 ALT 9 U/L (7-52) 01/17/23 18:08 Alkaline Phosphatase 83 U/L (34-104) 01/17/23 18:08 Total Protein 8.0 gm/dl (6.0-8.3) 01/17/23 18:08 Albumin 4.5 gm/dl (3.4-5.0) 01/17/23 18:08 Globulin 3.5 gm/dl (2.5-4.0) 01/17/23 18:08 Albumin/Globulin Ratio 1.3 (0.9-2) 01/17/23 18:08 Lipase 41 U/L (11-82) 01/17/23 18:08 Urine Color [place] 01/17/23 19: Urine Appearance Cloudy (Clear) A 01/17/23 19:01 Urine pH 5.5 (4.5-7.5) 01/17/23 19: Ur Specific [place] 1.033 (1.000-1.030) H 01/17/23 19:01 Urine Protein 1+ (Negative) H 01/17/23 19:01 Urine Glucose (UA) 3+ (Negative) H 01/17/23 19: Urine Ketones Negative (Negative) 01/17/23 19: Urine Blood 3+ (Negative) H 01/17/23 19:01 Urine Nitrite Positive (Negative) A 01/17/23 19: Urine Bilirubin Negative (Negative) 01/17/23 19: Urine Urobilinogen Negative (Negative) 01/17/23 19:01 Ur Leukocyte Esterase Negative (Negative) 01/17/23 19:01 Urine WBC (Auto) 10-30 /hpf (0-5) H 01/17/23 19:01 Urine RBC (Auto) >30 /hpf (0-4) H 01/17/23 19: U Hyaline Cast (Auto) 0 /lpf (0-5) 01/17/23 19:01 U Epithel Cells (Auto) 10-20 /lpf (0-5) H 01/17/23 19:01 Urine Bacteria (Auto) 4+ (Negative) H 01/17/23 19:01 Impressions Abdomen/Pelvis CT 01/17/23 16:32 CT abd pelvis wo con CLINICAL HISTORY: left flank pain TECHNIQUE: Helical axial images of the abdomen and pelvis were obtained. Automated dose lowering techniques and/or adjustment according to patient size were utilized for this exam. This exam was performed without intravenous contrast. CT DOSE: 1090.09 mGy.cm COMPARISON: None available at the time of this dictation. FINDINGS: Lower chest: Bronchiectasis is seen. Biatrial enlargement is seen. Mitral annular calcifications are noted. Liver: Unremarkable. No focal lesions are seen. Gallbladder and biliary tree: No calcified gallstones. Normal caliber wall. No intra- or extrahepatic biliary ductal dilation. Pancreas: Unremarkable, no focal lesions. Spleen: Unremarkable. Adrenals: Unremarkable. Kidneys and ureters: Left hydronephrosis is seen with a 8 mm stone at the pelvis. Bladder: Unremarkable. Reproductive organs: Unremarkable. Bowel: Diverticulosis is seen without evidence of diverticulitis. Patient is status post appendectomy. A hiatal hernia is seen. Lymph nodes Retroperitoneal: Unremarkable. Pelvic: Unremarkable. Mesenteric: Unremarkable. Peritoneum: Normal. Vessels: Atherosclerotic calcifications are seen. Abdominal wall: Unremarkable. Bones: Degenerative changes in the visualized spine. IMPRESSION: 1. Left hydronephrosis with a UPJ stone measuring 8 mm. 2. Diverticulosis without diverticulitis. 3. Hiatal hernia. ACT 112: Negative or not required by law. Electronically signed by: Kelby Dinh M.D. 01/17/2023 5:29 PM
[2023-01-17] MEDS ORDERED: ACETAMINOPHEN 325 MG TAB PO PRN (20:55)
[2023-01-17] MEDS ORDERED: LORazepam 0.5 MG TAB PO PRN (20:55)
[2023-01-17] MEDS ORDERED: PROMETHAZINE HCL 6.25 MG in SODIUM CHLORIDE 0.9% 50 ML IV PRN (20:55)
[2023-01-17] MEDS ORDERED: oxyCODONE HCL IR 5 MG TAB (IMMEDIATE RELEASE) PO PRN (20:55)
[2023-01-17] MEDS ORDERED: GLUCAGON FOR INJ 1 MG VIAL SQ PRN (22:56)
[2023-01-17] MEDS ORDERED: GLUCOSE 40% GEL 15 GM TUBE PO PRN (22:56)
[2023-01-17] MEDS ORDERED: GLUCOSE 10 TAB/TUBE PO PRN (22:56)
[2023-01-17] MEDS ORDERED: DEXTROSE 50% 50 ML SYRINGE IV PRN (22:56)
[2023-01-17] MEDS ORDERED: CARBOHYDRATES FOR HYPOGLYCEMIA PO PRN (22:56)
[2023-01-17] MEDS ORDERED: Patient's HEIGHT &/or WEIGHT Needed STA (23:11)
[2023-01-17] MEDS ORDERED: LANTUS PER UNIT CHARGE SC SCH (23:15)
[2023-01-17] MEDS: INSULIN ASPART PER UNIT CHARGE SC SCH (23:24)
[2023-01-17] MEDS: MoRPHine SULFATE 2 MG/ML CARP IV PRN (23:26)
[2023-01-17] MEDS: FAMOTIDINE 20 MG TAB PO SCH (23:33)
[2023-01-18] MEDS: FELODIPINE 5 MG TABCR PO SCH (01:47)
[2023-01-18] MEDS: MoRPHine SULFATE 2 MG/ML CARP IV PRN (05:42)
[2023-01-18] MEDS: INSULIN ASPART PER UNIT CHARGE SC SCH ×4 (05:47→20:54)
[2023-01-18] MEDS ORDERED: PROMETHAZINE HCL 12.5 MG in SODIUM CHLORIDE 0.9% 50 ML IV PRN (06:17)
[2023-01-18] MEDS ORDERED: MoRPHine SULFATE 4 MG/ML 1 ML CARP\\VIAL IV PRN (06:25)
[2023-01-18] MEDS ORDERED: PROMETHAZINE HCL 6.25 MG in SODIUM CHLORIDE 0.9% 50 ML IV ONE (06:30)
[2023-01-18 07:51] LABS: Basophils # (auto) 0.02 K/uL (0.00-0.20); Basophils % (auto) 0.2 %; Eosinophils # (auto) 0.05 K/uL (0.00-0.50); Eosinophils % (auto) 0.5 %; Hematocrit (blood only) 45.3 % (37.0-47.0); Hemoglobin 15.2 g/dl (12.0-16.0); Immature Granulocytes # (auto) 0.02 K/uL (0.01-0.20); Immature Granulocytes % (auto) 0.2 %; Lymphocytes # (auto) 1.83 K/uL (1.20-3.40); Lymphocytes % (auto) 17.9 %; Mean Corpuscular Hemoglobin 29.3 pg (25.0-34.0); Mean Corpuscular Hgb Conc 33.6 g/dL (32.0-36.0); Mean Corpuscular Volume 87.3 fL (80.0-100.0); Mean Platelet Volume 11.3 fL (9.4-12.4); Monocytes # (auto) 0.76 K/uL (0.11-0.59); Monocytes % (auto) 7.4 %; Neutrophils # (auto) 7.56 K/uL (1.40-6.50); Neutrophils % (auto) 73.8 %; Platelet Count 245 K/uL (130-400); RDW Coefficient of Variation 12.5 % (11.5-14.5); RDW Standard Deviation 39.9 fL (36.4-46.3); Red Blood Count 5.19 M/uL (4.20-5.40); White Blood Count 10.24 K/ul (4.8-10.8)
[2023-01-18] MEDS: FAMOTIDINE 20 MG TAB PO SCH ×2 (07:57→20:13)
[2023-01-18] MEDS: LOSARTAN POTASSIUM 25 MG TAB PO SCH (07:57)
[2023-01-18] MEDS: PANTOprazole 40 MG TAB PO SCH (07:57)
[2023-01-18] MEDS: CYANOCOBALAMIN (B-12) 500 MCG TABLET PO SCH (07:57)
[2023-01-18] MEDS: ENOXAPARIN INJ 40 MG/0.4 ML SYR SQ SCH (07:58)
[2023-01-18] MEDS: FLUoxetine HCL 20 MG CAP PO SCH (07:58)
[2023-01-18 08:04] LABS: BUN Creatinine Ratio 14.3 (10-20); Calcium 9.4 mg/dl (8.6-10.3); Creatinine Clr Calc Pharmacy 42.6 ml/min; Est GFR (African American) 72.4 ml/min; Est GFR (Non-African American) 62.5 ml/min; Potassium 3.6 mmol/L (3.5-5.1)
--- NOTE | 2023-01-18 08:27 | Urology Consultation ---
I have discussed Ms. Lopez's case with MARKY Lindsay and agree with the above documentation. Clinical picture is concerning for UTI with an obstructing stone. We will plan on cystoscopy and stent placement to ensure maximal drainage of the urinary tract. -Fred Angulo MD. Date of Consultation January 18, 2023 Assessment & Plan (1) Complicated UTI (urinary tract infection): (2) Ureteral calculus: (3) Hydronephrosis: (4) Renal colic: Plan 87yo/F admitted with suspected UTI and an obstructing 8mm left UPJ stone. Afebrile, hypertensive. Labs today reviewedno leukocytosis and normal renal function. Urinalysis suggestive of infection, culture pending. On ceftriaxone. Discussed acute stone management with cystoscopy and stent placement. Ureteral stents were discussed as well as postoperative issues and pain management. She is aware a second procedure will be needed for stone treatment after the infection has been treated. Patient agreeable to proceeding, all questions were answered. Plan to proceed to OR today for cystoscopy, left retrograde pyelogram, left ureteral stent placement. Risks and benefits to be reviewed with patient by Dr. Angulo. On IV ceftriaxone. Will also cover with Ancef preoperatively. Keep NPO. Urology will follow. History of Present Illness Attending Physician: Nabor Klein MD History of Present Illness 87-year-old female with a past medical history of HTN, mild aortic stenosis, hyperlipidemia, DM2 insulin requiring, nephrolithiasis who presented to the ED w ith severe left sided pain and nausea. On arrival, she was afebrile and hypertensive. Labs showing a mild leukocytosis of 12.95 and normal renal function. Urinalysis suggestive of infection with 3+ blood, positive nitrite, negative LE, 4+ bacteria. Urine culture pending. CT abdomen pelvis obtained and notable for an obstructing 8 mm left UPJ stone. Patient was given IV Rocephin. Admitted to medicine service for further management. CT abdomen pelvis 1. Left hydronephrosis with a UPJ stone measuring 8 mm. 2. Diverticulosis without diverticulitis. 3. Hiatal hernia. Patient examined at bedside this AM. Awake, resting in bed on arrival. No acute distress. Still with left-sided pain, managing with IV pain medication. Denies fevers or chills. Some nausea, no vomiting. Has been NPO. Voiding without issue. Denies hematuria or dysuria. Patient reports a history of kidney stones approximately 50 years ago with spontaneous passage. Allergies Allergy/AdvReac Type Severity Reaction Status Date / Time No Known Allergies Allergy Unverified 01/17/23 20:29 Home Medications Medication Instructions Recorded Confirmed Type Collagen Hydrolysate 1 dose PO DAILY 01/17/23 01/17/23 History ascorbic acid (vitamin C) 500 mg 500 mg PO DAILY 01/17/23 01/17/23 History chewable tablet (Vitamin C) cholecalciferol (vitamin D3) 10 10 mcg PO DAILY 01/17/23 01/17/23 History mcg (400 unit) tablet (Vitamin D3) cyanocobalamin (vitamin B-12) 1,000 mcg PO DAILY 01/17/23 01/17/23 History 1,000 mcg tablet (Vitamin B-12) empagliflozin 25 mg tablet 25 mg PO DAILY 01/17/23 01/17/23 History (Jardiance) famotidine 20 mg tablet 20 mg PO AMHS 01/17/23 01/17/23 History felodipine 5 mg tablet,extended 5 mg PO QAM 01/17/23 01/17/23 History release 24 hr fluoxetine 20 mg capsule 20 mg PO DAILY 01/17/23 01/17/23 History insulin glargine 100 unit/mL (3 15 unit subcut QPM 01/17/23 01/17/23 History mL) subcutaneous pen (Lantus Solostar U-100 Insulin) losartan 25 mg tablet 25 mg PO QAM 01/17/23 01/17/23 History omeprazole 20 mg capsule,delayed 20 mg PO QAM 01/17/23 01/17/23 History release semaglutide 0.25 mg or 0.5 mg (2 0.5 mg subcut WE 01/17/23 01/17/23 History mg/3 mL) subcutaneous pen injector (Ozempic) triamcinolone acetonide 0.1 % 1 applic topical BID PRN .flare ups 01/17/23 01/17/23 History topical cream trolamine salicylate 10 % topical 1 applic topical QID PRN Pain 01/17/23 01/17/23 History cream (Aspercreme) Patient History Social History Smoking Status: Never smoker Hx Alcohol Use: No Hx Substance Use: No Preferred Language: Cambodian Communication Ability: Effective [place] Required: No Beliefs That Will Affect Care: None Current Living Situation: Spouse Other Information That Helps Us Care for You: No Feels Safe at Home: Yes Safety Concerns: Feels Safe At This Time Assistive Devices: Cane Review of Systems Review of Systems: All systems reviewed & are unremarkable except as noted in HPI & below Physical Exam Constitutional: no acute distress and + uncomfortable Neck: normal visual inspection Respiratory: normal respiratory effort; no respiratory distress and no labored breathing Gastrointestinal (Abdomen): Inspection/Auscultation: abdomen normal to inspection Musculoskeletal: Head/Neck/Chest: normocephalic Skin: No visible rashes or lesions to exposed skin areas Neurologic: moves all extremities and awake Psychiatric: A+Ox3, euthymic affect Results & Data Vital Signs (Past 12 Hours) Vital Signs Temp Pulse Resp BP BP Pulse Ox O2 Del Method 01/18/23 07:36 36.8 C 85 18 164/88 H 93 Room Air 01/18/23 01:44 36.8 C 87 14 167/80 H 97 Room Air 01/17/23 22:30 36.5 C 83 16 189/81 H 97 Room Air 01/17/23 21:40 84 16 186/97 H 98 Room Air PG Care Time/CCT Total # of Minutes Spent Total Time Spent with Patient: Total time spent is greater than 50% in coordination of care (as documented) at patient's floor/unit and/or counseling patient: Coding Level of Care Code 49620 INT INP/OBS CARE 2/55MIN Diagnoses Complicated UTI (urinary tract infection) N39.0 Ureteral calculus N20.1 Hydronephrosis N13.30 Renal colic N23
[2023-01-18] MEDS ORDERED: FELODIPINE 5 MG TABCR PO SCH (09:00)
[2023-01-18] MEDS ORDERED: ceFAZolin 2000MG 2,000 MG/15 ML SYR IV SCH (10:09)
[2023-01-18] MEDS: LACTATED RINGER'S 1,000 ML IV SCH ×2 (12:41→15:16)
--- NOTE | 2023-01-18 13:00 | Electrocardiogram Report ---
Test Reason : Blood Pressure : / mmHG Vent. 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 lead placement vs. LVH Abnormal ECG When compared with ECG of 28-OCT-2017 05:28, No significant change was found Confirmed by Navdeep Soria ([id number]) on 01/18/2023 1:00:47 PM Referred By: REFERRED SELF Confirmed By:Navdeep Soria
[2023-01-18] MEDS ORDERED: ATROPINE SULFATE 0.1 MG/ML 10ML SYR IV PRN (13:07)
[2023-01-18] MEDS ORDERED: ONDANSETRON INJ 2 MG/ML 2 ML VIAL IV PRN (13:07)
[2023-01-18] MEDS ORDERED: fentaNYL citrate PF 100 MCG/2 ML VIAL IV PRN (13:07)
[2023-01-18] MEDS ORDERED: ePHEDrine sulfate 50 MG/ML AMP IV PRN (13:07)
[2023-01-18] MEDS ORDERED: PROPOFOL IV EMULSION 10 MG/ML 20 ML VIAL IV ONE (13:35)
[2023-01-18] MEDS ORDERED: LIDOCAINE 2% 2 ML VIAL/AMP(20MG/ML) INFIL ONE (13:35)
[2023-01-18] MEDS ORDERED: fentaNYL citrate PF 100 MCG/2 ML VIAL ONE (13:35)
[2023-01-18] MEDS ORDERED: MIDAZOLAM HCL 1 MG/ML 2ML VIAL ONE (13:35)
--- NOTE | 2023-01-18 13:48 | Anesthesiology Consultation ---
Date of Service January 18, 2023 Assessment & Plan (1) Encounter for pre-operative examination: Chart Review Chart Review: Acceptable Risk for Surgery and Patient NOT seen in Pre Admission Testing Consults Requested none History Surgery Operation Date: 01/18/23 10:25 Proposed Procedures p Cystoscopy, Left Retrograde Pyelogram and Stent Placement - Fred Angulo MD Height/Weight Height: 5 ft Weight: 74.7 kg Allergies Allergy/AdvReac Type Severity Reaction Status Date / Time No Known Allergies Allergy Verified 01/18/23 12:37 Medications Home Medications Medication Instructions Recorded Confirmed Last Taken Collagen Hydrolysate 1 dose PO DAILY 01/17/23 01/17/23 Unknown ascorbic acid (vitamin C) 500 mg 500 mg PO DAILY 01/17/23 01/17/23 Unknown chewable tablet (Vitamin C) cholecalciferol (vitamin D3) 10 10 mcg PO DAILY 01/17/23 01/17/23 Unknown mcg (400 unit) tablet (Vitamin D3) cyanocobalamin (vitamin B-12) 1,000 mcg PO DAILY 01/17/23 01/17/23 Unknown 1,000 mcg tablet (Vitamin B-12) empagliflozin 25 mg tablet 25 mg PO DAILY 01/17/23 01/17/23 Unknown (Jardiance) famotidine 20 mg tablet 20 mg PO AMHS 01/17/23 01/17/23 Unknown felodipine 5 mg tablet,extended 5 mg PO QAM 01/17/23 01/17/23 Unknown release 24 hr fluoxetine 20 mg capsule 20 mg PO DAILY 01/17/23 01/17/23 Unknown insulin glargine 100 unit/mL (3 15 unit subcut QPM 01/17/23 01/17/23 01/16/23 mL) subcutaneous pen (Lantus Solostar U-100 Insulin) losartan 25 mg tablet 25 mg PO QAM 01/17/23 01/17/23 Unknown omeprazole 20 mg capsule,delayed 20 mg PO QAM 01/17/23 01/17/23 Unknown release semaglutide 0.25 mg or 0.5 mg (2 0.5 mg subcut WE 01/17/23 01/17/23 01/09/23 mg/3 mL) subcutaneous pen injector (Ozempic) triamcinolone acetonide 0.1 % 1 applic topical BID PRN .flare ups 01/17/23 Unknown topical cream trolamine salicylate 10 % topical 1 applic topical QID PRN Pain 01/17/23 01/17/23 Unknown cream (Aspercreme) Active Medications Generic Name Dose Route Start Last Admin Trade Name Freq PRN Reason Stop Dose Admin Cyanocobalamin 1,000 mcg 01/18/23 09:00 01/18/23 07:57 Cyanocobalamin (B-12) 500 Mcg Tablet PO 02/17/23 08:59 1,000 mcg DAILY JAMARCUS Administration Enoxaparin Sodium 40 mg 01/18/23 09:00 01/18/23 07:58 Enoxaparin Inj 40 Mg/0.4 Ml Syr SQ 02/17/23 08:59 40 mg QAM JAMARCUS Administration Famotidine 20 mg 01/17/23 22:56 01/18/23 07:57 Famotidine 20 Mg Tab PO 02/16/23 22:55 20 mg AMHS JAMARCUS Administration Felodipine 5 mg 01/18/23 01:00 01/18/23 01:47 Felodipine 5 Mg Tabcr PO 02/17/23 00:59 5 mg QAM JAMARCUS Administration Fluoxetine HCl 20 mg 01/18/23 09:00 01/18/23 07:58 Fluoxetine Hcl 20 Mg Cap PO 02/17/23 08:59 20 mg DAILY JAMARCUS Administration Cefazolin Sodium 2,000 mg in 15 mls @ 3.75 mls/min 01/18/23 10:09 01/18/23 13:39 Ancef 2000mg IV 01/18/23 18:00 3.75 mls/min PREOP JAMARCUS Administration Protocol Lactated Ringer's 1,000 mls @ 15 mls/hr 01/18/23 12:45 01/18/23 13:39 Lr IV 02/17/23 12:44 Infused .Q24H JAMARCUS Infusion KVO Insulin Aspart 0 units 01/17/23 23:15 01/18/23 05:47 Insulin Aspart Per Unit Charge SC 02/16/23 23:14 Not Given Q6 JAMARCUS Losartan Potassium 25 mg 01/18/23 09:00 01/18/23 07:57 Losartan Potassium 25 Mg Tab PO 02/17/23 08:59 25 mg QAM JAMARCUS Administration Morphine Sulfate 4 mg 01/18/23 06:25 01/18/23 08:03 Morphine Sulfate 4 Mg/Ml 1 Ml Carp\Vial IV 02/01/23 06:24 4 mg Q4H PRN Administration Pain Pantoprazole Sodium 40 mg 01/18/23 09:00 01/18/23 07:57 Pantoprazole 40 Mg Tab PO 02/17/23 08:59 40 mg QAM JAMARCUS Administration NPO Date Last Intake of Fluids: 01/17/23 Time Last Intake of Fluids: 23:59 Date Last Intake of Solids: 01/17/23 Time Last Intake of Solids: 08:00 Past Medical History Medical History (Updated 01/18/23 @ 13:49 by Froy Delgado MD) Encounter for pre-operative examination HTN, mild aortic stenosis, hyperlipidemia, DM2 insulin requiring, nephrolithiasis Exercise / Class Metabolic Activity II 4-5 Yardwork/Stairs/Walk up hill Past Anesthesia History No Hx of Anesthesia Complications and No Family Hx of Anesthesia Complications History of PONV No Hx of PONV and No Hx of Motion Sickness Social History Smoking Status: Never smoker Hx Alcohol Use: No Hx Substance Use: No substance use type: does not use Physical Exam Vital Signs Last Vital Signs Temp 36.8 C 01/18/23 12:25 Pulse 99 H 01/18/23 12:25 Resp 20 01/18/23 12:25 BP 169/99 H 01/18/23 12:25 Pulse Ox 96 01/18/23 12:25 O2 Del Method Room Air 01/18/23 12:25 Testing Laboratory Results 01/18/23 07:19 01/18/23 07:19 Urine Color [place] 01/17/23 19:01 Urine Appearance Cloudy (Clear) A 01/17/23 19:01 Urine pH 5.5 (4.5-7.5) 01/17/23 19:01 Ur Specific [place] 1.033 (1.000-1.030) H 01/17/23 19:01 Urine Protein 1+ (Negative) H 01/17/23 19:01 Urine Glucose (UA) 3+ (Negative) H 01/17/23 19:01 Urine Ketones Negative (Negative) 01/17/23 19:01 Urine Nitrite Positive (Negative) A 01/17/23 19:01 Ur Leukocyte Esterase Negative (Negative) 01/17/23 19:01 Urine WBC (Auto) 10-30 /hpf (0-5) H 01/17/23 19:01 Urine RBC (Auto) >30 /hpf (0-4) H 01/17/23 19:01 U Hyaline Cast (Auto) 0 /lpf (0-5) 01/17/23 19:01 U Epithel Cells (Auto) 10-20 /lpf (0-5) H 01/17/23 19:01 Urine Bacteria (Auto) 4+ (Negative) H 01/17/23 19:01 01/17/23 19:01 Urine Culture - Preliminary Urine,Clean Catch Gram negative bacilli 01/18/23 01/18/23 11:45 05:23 POC Glucose 121 H 125 H Electrocardiogram Date: 01/17/23 DICTATED BY:Navdeep Soria MD Test Reason : Blood Pressure : / mmHG Vent. 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 lead placement vs. LVH Abnormal ECG When compared with ECG of 28-OCT-2017 05:28, No significant change was found Confirmed by Navdeep Soria ([id number]) on 01/18/2023 1:00:47 PM
[2023-01-18] MEDS ORDERED: DIATRIZOATE MEGLUMINE 30% 100ML VIAL INSTIL ONE (14:07)
[2023-01-18] MEDS ORDERED: ONDANSETRON INJ 2 MG/ML 2 ML VIAL ONE (14:08)
--- NOTE | 2023-01-18 14:20 | Operative Report ---
PG Post Operative Report Pre & Post Diagnosis Operation Date: 01/18/23 10:25 Pre-Op Diagnosis: (1) Complicated urinary tract infection (2) left ureteral calculus (3) Hydronephrosis (4) Renal colic Post-Op Diagnosis: (1) Complicated urinary tract infection (2) left ureteral calculus (3) Hydronephrosis (4) Renal colic I identified the patient and participated in the time-out.: Yes Procedure Operation Date: 01/18/23 10:25 Actual Procedures p Cystoscopy, Left Retrograde Pyelogram and Left Stent Placement(Left) - Fred Angulo MD Surgeon Fred Angulo MD Hand Router Operator none Estimated Blood Loss 0 Findings Consistent with Post-Op Diagnosis Specimens none Drains 6Fr x 24 cm double-J ureteral stent in the left ureter. Anesthesia Type MAC Complications none Disposition Accompanied Patient To Recovery: Yes Disposition: Recovery Room Indications This is an 87-year-old female currently hospitalized with a left ureteral stone and lab work suggestive of a urinary tract infection. She is being brought to the OR for left ureteral stent placement to ensure maximal drainage of the urinary tract. Description of Procedure The patient was identified in the holding area and informed consent was confirmed. She was marked on the left side, then was taken to the operating room where anesthesia was initiated. She was placed in the dorsal lithotomy position with all pressure points appropriately padded. She was prepped and draped in the usual sterile fashion and a preoperative timeout was performed. A well-lubricated cystoscope was inserted per urethra and panendoscopy was performed. The urethra was normal in appearance. The bladder was of normal size with ureteral orifices in orthotopic position. The left ureteral orifice was identified and cannulated with a 5 Syrian open- ended catheter. A retrograde pyelogram was performed demonstrating the distal ureter was normal in course and caliber with no extravasation or apparent strictures. There was an abrupt cessation of contrast at a shadow, suspicious for the stone. A 0.038" ZIPwire was advanced to the level of the kidney under fluoroscopic guidance. I advanced the open-ended catheter passed the stone over the wire and aspirated some of the urine from the kidney. There was some blood but no significant purulence. A small amount of contrast was instilled to the renal pelvis to assist with stent placement. Over the wire, a 6 Syrian x 24 centimeter double-J ureteral stent was advanced. When the wire was removed, the proximal and was visualized in the kidney with x- ray, and the distal curl visualized in the bladder with the cystoscope. At this point the bladder was drained and all instrumentation was removed. The patient was then awakened from anesthesia and was brought to the PACU in stable condition. I attest to the content of the Intraoperative Record and any orders documented therein. Any exceptions are noted below.
--- NOTE | 2023-01-18 14:21 | Fluoroscopy Report ---
FL retrograde includes kub CLINICAL HISTORY: CYSTOleft-sided cystourethrogram COMPARISON STUDY: CT 01/17/2023 FLUOROSCOPY TIME: 10.3 seconds FLUOROSCOPY IMAGES: 3 EXPOSURE DOSE: 2.24 mGy FINDINGS: A left-sided ureteroscope is present. Status post placement of a left ureteral stent which appears to be in satisfactory positioning. The distal portion of the stent was not imaged. IMPRESSION: Fluoroscopic assistance as above. ACT 112: Negative or not required by law. Electronically signed by: Charlie Horton M.D. 01/18/2023 2:20 PM
[2023-01-18] MEDS ORDERED: hydrALAZINE HCL 25 MG TAB PO PRN (14:47)
--- NOTE | 2023-01-18 14:49 | Hospitalist Progress Note ---
Date of Service January 18, 2023 Assessment & Plan (1) Complicated UTI (urinary tract infection): Plan: Acute complicated UTI Obstructive uropathy History of recurrent urolithiasis No sepsis at presentation Patient came in with sudden onset left-sided flank pain going to the abdomen associated with nausea. History of similar kidney stone attack from 50 years ago. No fever or chills at presentation. Admitting CTAP with left hydronephrosis with a UPJ stone measuring 8 mm. Admitting urinalysis suggestive of UTI, follow final urine culture results. Status post cystoscopy, left retrograde pyelogram and left stent placement by urology on 01/18/2023 Urology on board, appreciate recommendation. Continue with Rocephin 01/18. Hypertensive urgency secondary to above: Expect to improve with improvement in acute condition. Continue with as needed blood pressure medications and home blood pressure medications. c/w pain mx. Other chronic medical conditions: Continue with/resume home meds as and when able. Hyperlipidemia on statin Rx DM2 insulin requiring, well-controlled as of recent hemoglobin A1c of 6.8 this month DVT prophylaxis. Lovenox subcu Full code Diet: resume diet after OT, once cleared per urology. Admission and Anticipated Discharge Date Admission Date: January 17, 2023 Subjective Patient was seen and examined at bedside. Patient was lying in bed, on room air, resting comfortably, not in any acute distress. Family members at bedside. Patient with some left flank pain, denies fever or chest pain or sore throat or cough. Patient n.p.o. for possible urological procedure later in the day. Diet can be resumed after the procedure with clearance from urology. Physical Exam Physical Exam: GENERAL: Comfortable, pleasant, obese, looks younger than stated age, no respiratory distress SKIN: Normal color, warm HEENT: [place] palpebral conjunctivae, no ptosis, dry buccal mucosa NECK : Supple, short neck, no tenderness CHEST : CTA, no tenderness HEART : RRR, no obvious murmurs ABDOMEN: Some distention, minimal left sided abdominal tenderness EXTREMITIES : Minimal LE swelling, no LE tenderness, no other conspicuous deformities noted NEUROLOGIC : Coherent, no facial asymmetry, no other gross focality Left CVA angle, mild tenderness. Results & Data Results & Data Vital Signs (Past 12 Hours) Vital Signs Temp Pulse Pulse Resp BP Pulse Ox O2 Del Method 01/18/23 14:30 36.9 C 88 19 161/92 H 94 Room Air 01/18/23 14:25 88 19 172/89 H 100 Oxymask 01/18/23 14:16 36.1 C L 96 H 16 161/90 H 93 Oxymask 01/18/23 12:25 36.8 C 99 H 20 169/99 H 96 Room Air 01/18/23 07:36 36.8 C 85 18 164/88 H 93 Room Air O2 Flow Rate 01/18/23 14:30 01/18/23 14:25 10 01/18/23 14:16 10 01/18/23 12:25 01/18/23 07:36
--- NOTE | 2023-01-18 15:24 | Anesthesiology Progress Note ---
Date of Service January 18, 2023 Anesthesia Post Procedure Vital Signs Vital Signs: Temp Pulse Pulse Pulse Resp BP BP 01/18/23 15:00 36.9 C 95 H 18 151/76 H 01/18/23 14:30 36.9 C 88 19 161/92 H 01/18/23 14:25 88 19 172/89 H 01/18/23 14:16 36.1 C L 96 H 16 161/90 H 01/18/23 12:25 36.8 C 99 H 20 169/99 H 01/18/23 07:36 36.8 C 85 18 164/88 H 01/18/23 01:44 36.8 C 87 14 01/17/23 22:30 36.5 C 83 16 01/17/23 21:40 84 16 01/17/23 19:21 86 16 01/17/23 16:26 36.6 C 83 16 198/100 H BP Pulse Ox O2 Del Method O2 Flow Rate 01/18/23 15:00 98 Room Air 01/18/23 14:30 94 Room Air 01/18/23 14:25 100 Oxymask 10 01/18/23 14:16 93 Oxymask 10 01/18/23 12:25 96 Room Air 01/18/23 07:36 93 Room Air 01/18/23 01:44 167/80 H 97 Room Air 01/17/23 22:30 189/81 H 97 Room Air 01/17/23 21:40 186/97 H 98 Room Air 01/17/23 19:21 166/109 H 97 Room Air 01/17/23 16:26 98 Room Air Pain Intensity Left Flank: Pain Intensity: 10 Transfer of Care Handoff Completed per policy Notes Mental Status: alert / awake / arousable and participated in evaluation Patient Amnestic to Procedure: Yes Nausea / Vomiting: adequately controlled Pain: adequately controlled Airway Patency, RR, SpO2: stable & adequate BP & HR: stable & adequate Hydration State: stable & adequate Anesthetic Complications: no major complications apparent and Pt Satisfied with anesthetic care
[2023-01-18] MEDS ORDERED: Nursing to Pharmacy Communication SCH (15:30)
[2023-01-18] MEDS: cefTRIAXone SODIUM 2,000 MG in DEXTROSE 5 % MINI-B 50 ML IV SCH (20:13)
[2023-01-18] MEDS: LANTUS PER UNIT CHARGE SC SCH (20:55)
[2023-01-19 06:13] LABS: Hematocrit (blood only) 42.1 % (37.0-47.0); Hemoglobin 13.7 g/dl (12.0-16.0); Mean Corpuscular Hemoglobin 28.7 pg (25.0-34.0); Mean Corpuscular Hgb Conc 32.5 g/dL (32.0-36.0); Mean Corpuscular Volume 88.1 fL (80.0-100.0); Mean Platelet Volume 11.1 fL (9.4-12.4); Platelet Count 197 K/uL (130-400); RDW Coefficient of Variation 12.3 % (11.5-14.5); RDW Standard Deviation 39.8 fL (36.4-46.3); Red Blood Count 4.78 M/uL (4.20-5.40); White Blood Count 8.22 K/ul (4.8-10.8)
[2023-01-19 06:20] LABS: BUN Creatinine Ratio 15.7 (10-20); Calcium 9.2 mg/dl (8.6-10.3); Creatinine Clr Calc Pharmacy 43.1 ml/min; Est GFR (African American) 73.5 ml/min; Est GFR (Non-African American) 63.4 ml/min; Magnesium 1.9 mg/dl (1.7-2.4); Potassium 4.1 mmol/L (3.5-5.1)
[2023-01-19] MEDS: PANTOprazole 40 MG TAB PO SCH (08:36)
[2023-01-19] MEDS: FELODIPINE 5 MG TABCR PO SCH (08:36)
[2023-01-19] MEDS: LOSARTAN POTASSIUM 25 MG TAB PO SCH (08:36)
[2023-01-19] MEDS: CYANOCOBALAMIN (B-12) 500 MCG TABLET PO SCH (08:36)
[2023-01-19] MEDS: FLUoxetine HCL 20 MG CAP PO SCH (08:36)
[2023-01-19] MEDS: FAMOTIDINE 20 MG TAB PO SCH ×2 (08:36→19:53)
[2023-01-19] MEDS: ENOXAPARIN INJ 40 MG/0.4 ML SYR SQ SCH (08:37)
[2023-01-19] MEDS: INSULIN ASPART PER UNIT CHARGE SC SCH ×4 (08:43→20:39)
--- NOTE | 2023-01-19 14:57 | Urology Progress Note ---
Date of Service January 19, 2023 Assessment & Plan (1) Complicated UTI (urinary tract infection): (2) Ureteral calculus: (3) Hydronephrosis: (4) Renal colic: Plan 87yo/F admitted with suspected UTI and an obstructing 8mm left UPJ stone. Postop day #1 status post cystoscopy and left ureteral stent placement. Overall feeling better, tolerating the ureteral stent with minimal bother. Afebrile and hemodynamically stable. Labs today reviewedno leukocytosis and normal renal function. Urine culture finalized with E. coli. Continues on ceftriaxone. Okay for discharge from perspective when medically stable. Recommend DC with antibiotics, tamsulosin, prn pain medication for stent management. We will arrange outpatient follow-up with our service to discuss definitive stone treatment. Urology will sign off. Please contact us with any further questions, c oncerns, or changes in patient status Admission and Anticipated Discharge Date Admission Date: January 17, 2023 Subjective Patient examined at bedside this AM. Awake, resting bed on arrival. No acute distress. Overall feeling much better. No fevers. Tolerating the stent with minimal bother. Voiding without issue. Reports some mild hematuria and dysuria as expected. Review of Systems Constitutional: as per Subjective / HPI Gastrointestinal: as per Subjective / HPI Genitourinary: as per Subjective / HPI Physical Exam Constitutional: no acute distress Respiratory: no respiratory distress and no labored breathing Skin: No visible rashes or lesions to exposed skin areas Neurologic: moves all extremities and awake Psychiatric: A+Ox3, euthymic affect Results & Data Vital Signs (Past 12 Hours) Vital Signs Temp Pulse Resp BP Pulse Ox O2 Del Method O2 Flow Rate 01/19/23 08:00 37.2 C 92 H 18 132/81 96 Room Air 01/19/23 04:33 37.1 C 94 H 16 136/79 97 Nasal Cannula 2 01/19/23 00:49 37.2 C 94 H 20 136/79 97 Nasal Cannula 2 PG Care Time/CCT Total # of Minutes Spent Total Time Spent with Patient: Total time spent is greater than 50% in coordination of care (as documented) at patient's floor/unit and/or counseling patient: Coding Level of Care Code 28992 SUB INP/OBS CARE 2/35MIN Diagnoses Complicated UTI (urinary tract infection) N39.0 Ureteral calculus N20.1 Hydronephrosis N13.30 Renal colic N23
--- NOTE | 2023-01-19 16:19 | Hospitalist Progress Note ---
Date of Service January 19, 2023 Assessment & Plan (1) Complicated UTI (urinary tract infection): Plan: Acute complicated UTI Obstructive uropathy History of recurrent urolithiasis No sepsis at presentation Patient came in with sudden onset left-sided flank pain going to the abdomen associated with nausea. History of similar kidney stone attack from 50 years ago. No fever or chills at presentation. Admitting CTAP with left hydronephrosis with a UPJ stone measuring 8 mm. Admitting urinalysis suggestive of UTI, final urine culture results reviewed Status post cystoscopy, left retrograde pyelogram and left stent placement by urology on 01/18/2023 Urology on board, appreciate recommendation. Continue with Rocephin 01/18. Hypertensive urgency secondary to above: Expect to improve with improvement in acute condition. Continue with as needed blood pressure medications and home blood pressure medications. c/w pain mx. Other chronic medical conditions: Continue with/resume home meds as and when able. Hyperlipidemia on statin Rx DM2 insulin requiring, well-controlled as of recent hemoglobin A1c of 6.8 this month DVT prophylaxis. Lovenox subcu Full code Diet: resume diet after OT, once cleared per urology. Dispo: Patient and her family would like to go home tomorrow. Admission and Anticipated Discharge Date Admission Date: January 17, 2023 Subjective Patient was seen and examined at bedside. Patient was lying in bed, on room air, resting comfortably, not in any acute distress. Family members at bedside. Patient with improving left flank pain, denies fever or chest pain or sore throat or cough. Patient reports eating okay and moving bowels okay. Physical Exam Physical Exam: GENERAL: Comfortable, pleasant, obese, looks younger than stated age, no respiratory distress SKIN: Normal color, warm HEENT: [place] palpebral conjunctivae, no ptosis, dry buccal mucosa NECK : Supple, short neck, no tenderness CHEST : CTA, no tenderness HEART : RRR, no obvious murmurs ABDOMEN: Some distention, minimal left sided abdominal tenderness EXTREMITIES : Minimal LE swelling, no LE tenderness, no other conspicuous deformities noted NEUROLOGIC : Coherent, no facial asymmetry, no other gross focality Left CVA angle, improved Results & Data Results & Data Vital Signs (Past 12 Hours) Vital Signs Temp Pulse Resp BP Pulse Ox O2 Del Method O2 Flow Rate 01/19/23 15:48 36.8 C 100 H 18 102/66 93 Room Air 01/19/23 08:00 37.2 C 92 H 18 132/81 96 Room Air 01/19/23 04:33 37.1 C 94 H 16 136/79 97 Nasal Cannula 2
[2023-01-19] MEDS: cefTRIAXone SODIUM 2,000 MG in DEXTROSE 5 % MINI-B 50 ML IV SCH (19:53)
[2023-01-19] MEDS: LANTUS PER UNIT CHARGE SC SCH (20:39)
[2023-01-20] MEDS: FAMOTIDINE 20 MG TAB PO SCH (08:11)
[2023-01-20] MEDS: LOSARTAN POTASSIUM 25 MG TAB PO SCH (08:12)
[2023-01-20] MEDS: PANTOprazole 40 MG TAB PO SCH (08:12)
[2023-01-20] MEDS: FLUoxetine HCL 20 MG CAP PO SCH (08:14)
[2023-01-20] MEDS: CYANOCOBALAMIN (B-12) 500 MCG TABLET PO SCH (08:14)
[2023-01-20] MEDS: ENOXAPARIN INJ 40 MG/0.4 ML SYR SQ SCH (08:16)
[2023-01-20] MEDS ORDERED: CEFDINIR 300 MG CAP PO SCH (09:00)
[2023-01-20] MEDS ORDERED: ADVANCED PROBIOTIC 1250 MG CAPSULE PO SCH (09:00)
[2023-01-20] MEDS: INSULIN ASPART PER UNIT CHARGE SC SCH ×2 (09:48→12:46)
[2023-01-20] MEDS: FELODIPINE 5 MG TABCR PO SCH (09:49)
--- NOTE | 2023-01-20 12:05 | Discharge Summary ---
Date of Service January 20, 2023 Admission HPI Per Admitting Provider History obtained from patient and records. Medical history significant for HTN, mild aortic stenosis (TTE 2022), hyperlipidemia, DM2 insulin requiring, urolithiasis. Patient had sudden onset left-sided flank pain going to the abdomen with nausea symptoms after lunchtime today. Similar to kidney stone attack from 50 years ago. No chest pain, no SOB, no fever, no chills, no headache symptoms. Initial SBP at the ER 190s. SBP currently 160s. IV ceftriaxone administered at the ER. 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 Admission Exam Per Admitting Provider GENERAL: Comfortable, pleasant, obese, looks younger than stated age, no respiratory distress SKIN: Normal color, warm HEENT: [place] palpebral conjunctivae, no ptosis, dry buccal mucosa NECK : Supple, short neck, no tenderness CHEST : CTA, no tenderness HEART : RRR, no obvious murmurs ABDOMEN: Some distention, minimal left sided abdominal tenderness EXTREMITIES : Minimal LE swelling, no LE tenderness, no other conspicuous deformities noted NEUROLOGIC : Coherent, no facial asymmetry, no other gross focality Principal Diagnosis Acute complicated UTI Obstructive uropathy x left UPJ stone Hypertensive urgency Discharge Exam GENERAL: Comfortable, pleasant, obese, looks younger than stated age, no respiratory distress SKIN: Normal color, warm HEENT: [place] palpebral conjunctivae, no ptosis, dry buccal mucosa NECK : Supple, short neck, no tenderness CHEST : CTA, no tenderness HEART : RRR, no obvious murmurs ABDOMEN: Some distention, minimal left sided abdominal tenderness EXTREMITIES : Minimal LE swelling, no LE tenderness, no other conspicuous deformities noted NEUROLOGIC : Coherent, no facial asymmetry, no other gross focality Left CVA angle, improved Discharge Data Allergies Allergy/AdvReac Type Severity Reaction Status Date / Time No Known Allergies Allergy Verified 01/18/23 12:37 Consultations 01/17/23 20:07 ED Decision to Admit Stat 01/17/23 22:56 Consult Urology Routine Procedures Performed Operation Date: 01/18/23 10:25 Actual Procedures p Cystoscopy, Left Retrograde Pyelogram and Left Stent Placement(Left) - Fred Angulo MD Ordered Studies 01/17/23 16:32 CT abd pelvis wo con Stat 01/18/23 [place] retrograde includes kub Routine Hospital Course (1) Complicated UTI (urinary tract infection): She was managed for the following: Acute complicated UTI Obstructive uropathy History of recurrent urolithiasis No sepsis at presentation Patient came in with sudden onset left-sided flank pain going to the abdomen associated with nausea. History of similar kidney stone attack from 50 years ago. No fever or chills at presentation. Admitting CTAP with left hydronephrosis with a UPJ stone measuring 8 mm. Admitting urinalysis suggestive of UTI, final urine culture results reviewed Status post cystoscopy, left retrograde pyelogram and left stent placement by urology on 01/18/2023 Urology evaluated, appreciate recommendation. To cefdinir on discharge to complete the course. Probiotics added. Tamsulosin added per urology recommendation. As needed pain medication for severe pain provided, patient can use [id number] Tylenol for mild pain. Hypertensive urgency secondary to above: Expect to improve with improvement in acute condition. Continue with as needed blood pressure medications and home blood pressure medications. c/w pain mx. Blood pressure improved. Other chronic medical conditions: Continue with/resume home meds as and when able. Hyperlipidemia on statin Rx DM2 insulin requiring, well-controlled as of recent hemoglobin A1c of 6.8 this month DVT prophylaxis. Lovenox subcu Full code Patient is being discharged to home with family support with following instruction at the point of discharge: Follow-up with your primary care physician within a week time and likely you will need labs CBC/CMP/magnesium/phosphorus. Follow-up with urology In 1 to 2 weeks time upon discharge. You will need your stent removal. You will be discharged on antibiotic, complete the course. Probiotics will be added. Take your medications as prescribed. Please make sure that you are able to get your medications today by calling your pharmacy before you leave the hospital so that your treatment continuity is not broken. Home Health Attestation I certify that this patient is under my care and that I, or a physicians visitor services information assistant working with me, had a face to-face encounter that meets the [facility] encounter requirements with this patient. The encounter with the patient was in whole, or in part, for the following medical condition, which is the primary reason for home health care (list medical condition): I certify that, based on my findings, the following services are medically necessary home health services: My clinical findings support the need for the above services because: Further, I certify that my clinical findings support that this patient is homebound (i.e. absences from home require considerable and taxing effort and are for medical reasons or anabaptism services or infrequently or of short duration when for other reasons) because: Certification for Home Health Services: Based on the above findings, I certify that this patient is confined to the home and needs intermittent jail care, physical therapy and/or speech therapy or continues to need occupational therapy. The patient is under my care, and I have initiated the establishment of the plan of care. This patient will be followed by a physician who will periodically review the plan of care. Total Time Total Time Spent Total Time Spent (In Minutes): 45 Discharge Plan Discharge Items Patient Disposition: Home - Self-Care Reason For Visit: COMP UTI Discharge Diagnosis: Acute complicated UTI Obstructive uropathy x left UPJ stone Hypertensive urgency Activity: Resume your previous activity Non-emergency contact: Primary Care Provider Call non-emergency contact if: you have any medication questions, your symptoms worsen and your temperature is above 101 Follow-up/Referrals: Fred Angulo MD [Physician] - Stephen Tompkins DO [Primary Care Provider] - (Date & Time 01/24/2023 1:40 PM Provider Viktoriya Zazueta DO Department Family [facility] ) Diet: Carb Consistent or DM2 Addtl Attending Provider Instructions: Follow-up with your primary care physician within a week time and likely you will need labs CBC/CMP/magnesium/phosphorus. Follow-up with urology In 1 to 2 weeks time upon discharge. You will need your stent removal. You will be discharged on antibiotic, complete the course. Probiotics will be added. Take your medications as prescribed. Please make sure that you are able to get your medications today by calling your pharmacy before you leave the hospital so that your treatment continuity is not broken. Addtl Valuation Manager Provider Instructions: The surgery you had was ureteral stent placement. If you are having discomfort from your stent, it is ok to take tylenol alternating with ibuprofen. You can also take AZO, which can be purchased [id number] at the drugstore. Be aware this turns your urine a bright orange color. If you are prescribed a stronger medication you can take this according to instructions on the label. The stent will need to be removed. If you still have a kidney stone in place, we will make sure this is treated prior to stent removal. As long as the stent is in place, you may see some blood in the urine. You may have pain in your side when you urinate. The urology office will call you within a couple days of discharge to arrange an outpatient office visit. If you have not heard from us after 2 days, you can call the office at [phone]: Pending Studies at Discharge: Yes Stand-Alone Forms: My [facility] Chauffeur Prive, Smoking Cessation Medications and DC Order Prescriptions: New cefdinir 300 mg Capsule 300 mg PO BID 8 Days Qty: 16 0RF oxycodone 5 mg Tablet 5 mg PO BID PRN (Reason: severe pain (scale score 7-10)) Qty: 10 0RF Advanced Probiotic 625 mg (10 billion cell) Capsule 2 cap PO DAILY 14 Days Qty: 28 0RF tamsulosin 0.4 mg capsule 0.4 mg PO DAILY Qty: 30 0RF Continued felodipine 5 mg tablet extended release 24 hr 5 mg PO QAM cyanocobalamin (vitamin B-12) [Vitamin B-12] 1,000 mcg Tablet 1,000 mcg PO DAILY triamcinolone acetonide 0.1 % cream 1 applic TOPICAL BID PRN (Reason: .flare ups) famotidine 20 mg tablet 20 mg PO AMHS losartan 25 mg tablet 25 mg PO QAM ascorbic acid (vitamin C) [Vitamin C] 500 mg Tablet,Chewable 500 mg PO DAILY omeprazole 20 mg capsule,delayed release(DR/EC) 20 mg PO QAM fluoxetine 20 mg capsule 20 mg PO DAILY cholecalciferol (vitamin D3) [Vitamin D3] 10 mcg (400 unit) Tablet 10 mcg PO DAILY trolamine salicylate [Aspercreme] 10 % Cream 1 applic TOPICAL QID PRN (Reason: Pain) insulin glargine [Lantus Solostar U-100 Insulin] 100 unit/mL (3 mL) insulin pen 15 unit SUBCUT QPM Jardiance 25 mg tablet 25 mg PO DAILY Ozempic 0.25 mg or 0.5 mg (2 mg/3 mL) pen injector 0.5 mg SUBCUT WE Rx Instructions: deirdre Collagen Hydrolysate 1 dose PO DAILY Discharge Orders: Discharge Order (Routine); Ordered 01/20/23 Ordered By: Nabor Klein Admission Data Admit Date/Time: 01/17/23 20:53 Attending Provider: Nabor Klein Admit Provider: Patel Nassar Primary Care Provider: Stephen Tompkins Other Providers: Patel Nassar ; [place] G[place]mith
== END 2023-01-20 14:02 | disposition home or self-care (01) | DRG 660 ==
LOC: ED 16:12 → 3N 20:53

== ENCOUNTER 2023-02-05 13:00 | Inpatient (IN) ==
--- NOTE | 2023-02-05 13:47 | ED Triage Note ---
Date of Service February 05, 2023 History of Present Illness This patient was briefly evaluated while in triage. An abbreviated physical exam was performed. This patient is a 87-year-old Female who presents to the ED for evaluation of multiple episodes of vomiting and concern for dehydration. Been vomiting for 2-3 days. Had stent placed for kidney stone 5 days ago. Referred here by urology. Has chills but no fevers. No dysuria. Mild back pain, no abdominal pain. No chest pain, but has epigastric pain after vomiting Physical Exam CONSTITUTIONAL: mildly uncomfortable SKIN: pink, warm, dry CARDIAC: tachycardic rate and rhythm RESPIRATORY: in no respiratory distress, lungs clear to auscultation ABDOMEN: No focal tenderness Initial orders for labs and / or imaging were placed and patient was placed in the waiting area until a bed is available. Please see further documentation for the full ED course.
--- NOTE | 2023-02-05 15:30 | Electrocardiogram Report ---
Test Reason : Blood Pressure : / mmHG Vent. 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 lead placement vs. LVH Abnormal ECG When compared with ECG of 18-JAN-2023 06:36, No significant change was found Confirmed by Don Harper ([id number]) on 02/05/2023 3:29:52 PM Referred By: Confirmed By:Don Harper
[2023-02-05 15:57] LABS: Basophils # (auto) 0.02 K/uL (0.00-0.20); Basophils % (auto) 0.2 %; Hematocrit (blood only) 44.9 % (37.0-47.0); Immature Granulocytes # (auto) 0.04 K/uL (0.01-0.20); Immature Granulocytes % (auto) 0.3 %; Lymphocytes # (auto) 0.76 K/uL (1.20-3.40); Lymphocytes % (auto) 6.2 %; Mean Corpuscular Hemoglobin 29.1 pg (25.0-34.0); Mean Corpuscular Hgb Conc 33.4 g/dL (32.0-36.0); Mean Platelet Volume 10.7 fL (9.4-12.4); Monocytes # (auto) 0.61 K/uL (0.11-0.59); Neutrophils # (auto) 10.83 K/uL (1.40-6.50); Neutrophils % (auto) 88.3 %; Platelet Count 288 K/uL (130-400); RDW Coefficient of Variation 12.1 % (11.5-14.5); RDW Standard Deviation 38.6 fL (36.4-46.3); Red Blood Count 5.16 M/uL (4.20-5.40); White Blood Count 12.26 K/ul (4.8-10.8)
[2023-02-05 16:01] LABS: Appearance Urine Clear (Clear); Bacteria Urine Automated Negative (Negative); Bilirubin Urine Negative (Negative); Blood Urine 3+ (Negative); Color Urine Yellow; Glucose Urine UA 3+ (Negative); Ketones Urine 3+ (Negative); Leukocyte Esterase Urine 1+ (Negative); Nitrite Urine Negative (Negative); Protein Urine 2+ (Negative); Specific Gravity Urine 1.031 (1.000-1.030); Urobilinogen Urine Negative (Negative); WBC Urine Automated >30 /hpf (0-5); pH Urine 5.5 (4.5-7.5)
[2023-02-05 16:10] LABS: Alanine Aminotransferase 7 U/L (7-52); Albumin Globulin Ratio 1.1 (0.9-2); Albumin Level 4.1 gm/dl (3.4-5.0); Alkaline Phosphatase 69 U/L (34-104); Anion Gap 10 (3-11); Aspartate Aminotransferase 15 U/L (13-39); BUN Creatinine Ratio 17.9 (10-20); Bilirubin,Total 0.7 mg/dl (0.2-1.0); Blood Urea Nitrogen 17 mg/dl (6-23); Calcium 9.9 mg/dl (8.6-10.3); Carbon Dioxide 26 mmol/L (21-32); Chloride 98 mmol/L (98-107); Est GFR (African American) 62.4 ml/min; Est GFR (Non-African American) 53.9 ml/min; Globulin 3.8 gm/dl (2.5-4.0); Glucose 210 mg/dl (70-99(Fasting)); Lipase 14 U/L (11-82); Potassium 4.4 mmol/L (3.5-5.1); Sodium 134 mmol/L (136-145); Total Protein 7.9 gm/dl (6.0-8.3)
[2023-02-05 16:18] LABS: RBC Urine Automated >30 /hpf (0-4)
--- NOTE | 2023-02-05 16:28 | CT Scan Report ---
ABDOMEN AND PELVIS CT WITHOUT CONTRAST CT DOSE: 1087.06 mGy.cm HISTORY: ureteral stent s/p 5 days, vomiting chills TECHNIQUE: Multiaxial CT images of the abdomen and pelvis were performed without contrast. A dose lo wering technique was utilized adhering to the principles of ALARA. COMPARISON STUDY: Abdomen and pelvis CT 01/17/2023. FINDINGS: A few bibasilar linear densities likely representing subsegmental atelectasis or scarring. No pneumoperitoneum. No pneumatosis. No acute fractures. There is a tiny hiatus hernia again noted. G rade 1 anterolisthesis of L4 on L5 with degenerative changes within the lumbar spine. The unenhanced liver, gallbladder, pancreas, spleen, and adrenal glands unremarkable. There is a punctate stone with in the right kidney on image 101. Stable 1.6 cm hypodense lesion within the lower pole the right kidn ey. This favors a cyst. No right-sided hydronephrosis. No retroperitoneal lymphadenopathy. Normal dolly iber abdominal aorta with mild calcified plaque. No pelvic lymphadenopathy or pelvic free fluid. Mild bladder wall thickening with adjacent fat stranding. Prior hysterectomy. Interval placement of a lef t ureteral stent which appears in good position. There is a 1 mm stone remaining within the proximal left ureter adjacent to the ureteral stent best seen on image 129. There are multiple left renal calc tonia noted which may represent fragmentation of the previous identified left UPJ stone. The dominant f ragment within the lower pole measures 6 mm. Urothelial thickening within the left renal pelvis and l eft ureter with adjacent fat stranding has slightly progressed. Mild left perinephric edema/fat stran ding has also slightly progressed. Interval improvement in the left-sided hydronephrosis with mild fu llness within the left renal collecting system remaining. Suboptimal evaluation for bowel pathology d ue to the lack of intravenous and oral contrast. However, there is no definite bowel wall thickening or obstruction. Colonic diverticulosis. No evidence for acute diverticulitis. IMPRESSION: 1. Interval fragmentation of the left UPJ stone seen on the prior study with multiple stone fragments now seen within the left renal collecting system. There is also a 1 mm stone remaining within the le ft ureteropelvic junction adjacent to the left ureteral stent. Overall, the left-sided hydronephrosis has significantly improved in the interval. 2. Urothelial thickening within the left renal pelvis and left ureter with mild adjacent fat strandin g has slightly progressed. This could be reactive to the recent stent placement. A superimposed pyeli tis/pyelonephritis could also have a similar appearance. Recommend correlation with urinalysis. 3. Mild bladder wall thickening which could represent a cystitis. 4. No bowel wall thickening or obstruction. 5. Right-sided nephrolithiasis. No right-sided hydronephrosis. 6. Additional findings as described above. ACT 112: Negative or not required by law. Electronically signed by: Keith Nichols M.D. 02/05/2023 4:27 PM
[2023-02-05] MEDS ORDERED: cefTRIAXone SODIUM 2,000 MG/50 ML BAG IV STA (16:32)
--- NOTE | 2023-02-05 17:05 | Emergency Department Note ---
Impression & Plan Complicated UTI (urinary tract infection) ED Provider Note NAME: JR DOYLE AGE: 87 SEX: F : 1935 ARRIVES VIA: Walk-In INFORMANT: Patient, ED PROVIDER(S): Lolly Damon MD CHIEF COMPLAINT: Nausea/vomiting HPI: This is an 87-year-old female with history of kidney stone status post stent placement status post lithotripsy presenting for nausea vomiting and chills. Patient states that she initially presented with a kidney stone that was 9 mm requiring stenting and she had an infection at the same time. She underwent the stent, was treated antibiotics and then had laser lithotripsy. Over the past 2 days patient's had increasing nausea., vomiting, feeling chilled unclear if he had a fever at home. ROS: See above HPI for pertinent positives & negatives. A total of 10 systems reviewed and were otherwise negative. PAST MEDICAL HISTORY: See Below PAST SURGICAL HISTORY: See Below FAMILY HISTORY: See Below SOCIAL HISTORY: See Below HOME MEDICATIONS: See Below ALLERGIES: See Below VITALS: See Below PHYSICAL EXAMINATION: General: Fatigued Head: Normocephalic and atraumatic Eyes: Normal inspection, extraocular muscles intact, no conjunctival pallor Ear, nose, throat: Normal external exam Neck: Normal range of motion Respiratory: Patient is in no respiratory distress, lungs clear to auscultation bilaterally Cardiovascular: RRR without murmur appreciated GI: soft, nontender, no guarding or rebound Extremities: pulses intact with good cap refills Neuro: The patient awake and alert, appropriately conversive,no focal decifits Skin: Warm, dry, and intact MEDICAL DECISION MAKING: This is an 87-year-old female history of kidney stones, status post stenting/lithotripsy presenting for nausea/vomiting/chills. Patient's blood work does show leukocytosis 12.26, otherwise patient's urinalysis is concerning for continued infection. She has leuk esterase, WBCs and blood. She also has yeast. Patient feels unwell with chills, nausea and vomiting. CT imaging is concerning for retained stones with concerning pyelonephritis versus cystitis. Discussed with urology as below. Agrees to admission for IV antibiotics. Will order IV antibiotics. I discussed with Dr. Mendoza, urology about patient's condition, CT and further work-up. He agrees the plan for admission IV antibiotics. Discussed with hospitalist midlevel for admission. Patient admitted under Dr. Klein. Triage Nursing notes reviewed. Prior medical records reviewed Vital Signs: reviewed and remarkable for no significant abnormalities Differential diagnosis: Cystitis, pyonephritis, septic kidney stone ER treatment provided: See below Diagnostics interpreted by me: ECG: ECG independently interpreted by me with sinus tachycardia rate 105, normal KS, normal QRS, normal QTc, no ST segment elevations consistent with STEMI criteria, poor R wave progression Cardiac Monitoring: An order was placed for continuous cardiac monitoring. The monitor shows a rate of 107 with sinus tachycardia rhythm Laboratory studies: As stated above and show below. Imaging studies: See below. Radiographic imaging was reviewed by myself Consultation(s): None Critical Care Note: I have personally spent 40 minutes of critical care time in the direct management of this patient. This includes bedside care, interpretation of diagnostic studies, and testing, discussion with consultants, patient, and family members, and other required patient management activities. This 40 minutes is in excess of all separately billable procedures. 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 Anxiety and depression Aortic stenosis, mild f/u PCP Diabetes mellitus, type 2 IDDM Kidney stones GERD (gastroesophageal reflux disease) Hypertension Surgical History History of dilatation and curettage Hx of arthroscopy of right knee Hx of arthroscopy of left knee Hx of total hysterectomy with removal of both tubes and ovaries Hx of appendectomy Hx of colonoscopy Hx of bilateral cataract extraction Social History Smoking Status: Never smoker Second Hand Exposure: No; Do You Dip or Chew Tobacco: No; Hx Alcohol Use: No Hx Substance Use: No Preferred Language: Polish Communication Ability: Effective 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 Beliefs That Will Affect Care: None Current Living Situation: Spouse Feels Safe at Home: Yes Assistive Devices: Glasses Allergies Allergies Allergy/AdvReac Type Severity Reaction Status Date / Time No Known Allergies Allergy Verified 02/05/23 17:34 Home Meds Home Medications Medication Instructions Recorded Confirmed cholecalciferol (vitamin D3) 10 10 mcg PO DAILY 01/17/23 02/05/23 mcg (400 unit) tablet (Vitamin D3) cyanocobalamin (vitamin B-12) 1,000 mcg PO DAILY 10/18/23 11/06/23 1,000 mcg tablet (Vitamin B-12) empagliflozin 25 mg tablet 25 mg PO QAM 01/17/23 02/05/23 (Jardiance) famotidine 20 mg tablet 20 mg PO BID 01/17/23 02/05/23 felodipine 5 mg tablet,extended 5 mg PO QAM 01/17/23 02/05/23 release 24 hr fluoxetine 20 mg capsule 20 mg PO QAM 01/17/23 02/05/23 insulin glargine 100 unit/mL (3 15 unit subcut QPM 01/17/23 02/05/23 mL) subcutaneous pen (Lantus Solostar U-100 Insulin) losartan 25 mg tablet 25 mg PO QAM 01/17/23 02/05/23 omeprazole 20 mg capsule,delayed 20 mg PO QAM 01/17/23 02/05/23 release semaglutide 0.25 mg or 0.5 mg (2 0.5 mg subcut Q7D 01/17/23 02/05/23 mg/3 mL) subcutaneous pen injector (Ozempic) triamcinolone acetonide 0.1 % 1 applic topical BID PRN .flare ups 01/17/23 02/05/23 topical cream trolamine salicylate 10 % topical 1 applic topical QID PRN Pain 01/17/23 02/05/23 cream (Aspercreme) tamsulosin 0.4 mg capsule 0.4 mg PO QAM 01/29/23 02/05/23 Results & Data (ED) Vital Signs Vital Signs - 24 hr 02/05/23 13:38 Temperature 36.6 C Temperature Source Temporal Artery Scan Pulse Rate 112 H Respiratory Rate 18 Respiratory Effort / Characteristics Non-Labored Spontaneous Respiratory Depth Normal Respiratory Pattern Regular Blood Pressure 137/79 Blood Pressure Mean 98 Blood Pressure Position Sitting Pulse Oximetry 93 Oxygen Delivery Method Room Air Sepsis Recent Fever Within 48 Hours No Sepsis New/Unexplained Change in Mental Status N/A Sepsis Action Taken by Nursing No Action Required Laboratory Data 02/05/23 15:26 02/05/23 15:26 Lab Results 02/05/23 Range/Units 15:26 WBC 12.26 H (4.8-10.8) K/ul RBC 5.16 (4.20-5.40) M/uL Hgb 15.0 (12.0-16.0) g/dl Hct 44.9 (37.0-47.0) % MCV 87.0 (80.0-100.0) fL MCH 29.1 (25.0-34.0) pg MCHC 33.4 (32.0-36.0) g/dL RDW Std Deviation 38.6 (36.4-46.3) fL RDW Coeff of Augustina 12.1 (11.5-14.5) % Plt Count 288 (130-400) K/uL MPV 10.7 (9.4-12.4) fL Immature Gran % (Auto) 0.3 % Neut % (Auto) 88.3 % Lymph % (Auto) 6.2 % Clay % (Auto) 5.0 % Eos % (Auto) 0.0 % Baso % (Auto) 0.2 % Neut # (Auto) 10.83 H (1.40-6.50) K/uL Lymph # (Auto) 0.76 L (1.20-3.40) K/uL Clay # (Auto) 0.61 H (0.11-0.59) K/uL Eos # (Auto) 0.00 (0.00-0.50) K/uL Baso # (Auto) 0.02 (0.00-0.20) K/uL Immature Gran # (Auto) 0.04 (0.01-0.20) K/uL Sodium 134 L (136-145) mmol/L Potassium 4.4 (3.5-5.1) mmol/L Chloride 98 (98-107) mmol/L Carbon Dioxide 26 (21-32) mmol/L Anion Gap 10 (3-11) BUN 17 (6-23) mg/dl Creatinine 0.95 (0.6-1.2) mg/dl Est Cr Clr Drug Dosing Not Reportable Est GFR ( Amer) 62.4 ml/min Est GFR (Non-Af Amer) 53.9 ml/min BUN/Creatinine Ratio 17.9 (10-20) Glucose 210 H (70-99(Fasting)) mg/dl Calcium 9.9 (8.6-10.3) mg/dl Total Bilirubin 0.7 (0.2-1.0) mg/dl AST 15 (13-39) U/L ALT 7 (7-52) U/L Alkaline Phosphatase 69 (34-104) U/L Troponin I High Sens 10.0 (0-14) pg/ml Total Protein 7.9 (6.0-8.3) gm/dl Albumin 4.1 (3.4-5.0) gm/dl Globulin 3.8 (2.5-4.0) gm/dl Albumin/Globulin Ratio 1.1 (0.9-2) Lipase 14 (11-82) U/L Administered Medications Famotidine (Famotidine 20 Mg Tab) 20 mg PO BID JAMARCUS Stop: 03/07/23 20:59 Last Admin: 02/05/23 21:23 Dose: 20 mg Documented By: BRADEN Heparin Sodium (Porcine) (Heparin Sod 5,000 Unit/0.5 Ml Vial) 5,000 units SQ Q12 JAMARCUS Stop: 03/07/23 20:59 Last Admin: 02/05/23 21:26 Dose: 5,000 units Documented By: BRADEN Sodium Chloride (Nss) 1,000 mls @ 80 mls/hr IV .[id number] JAMARCUS Stop: 02/06/23 21:33 Last Admin: 02/05/23 21:18 Dose: 80 mls/hr Documented By: BRADEN Insulin Aspart (Insulin Aspart Per Unit Charge) 0 units SC ACHS JAMARCUS Stop: 03/07/23 20:59 Last Admin: 02/05/23 21:31 Dose: Not Given Documented By: BRADEN Co-signed By: JOVANY Insulin Glargine (Lantus Per Unit Charge) 8 units SQ BID JAMARCUS Stop: 03/07/23 20:59 Last Admin: 02/05/23 21:19 Dose: 8 units Documented By: MED Co-signed By: [facility] Discontinued Medications Ceftriaxone Sodium (Rocephin) 2,000 mg in 50 mls @ 100 mls/hr IV NOW STA Stop: 02/05/23 17:01 Last Infusion: 02/05/23 17:42 Dose: Infused Documented By: Admin: 02/05/23 17:14 Dose: 100 mls/hr Documented By: PA Sodium Chloride (Nss) 250 mls @ 999 mls/hr IV .Q16M ONE Stop: 02/05/23 17:22 Last Infusion: 11/06/23 17:42 Dose: Infused Documented By: Admin: 02/05/23 17:15 Dose: 999 mls/hr Documented By: PA Ondansetron HCl (Ondansetron Inj 2 Mg/Ml 2 Ml Vial) 4 mg IV NOW STA Stop: 02/05/23 17:08 Last Admin: 02/05/23 17:15 Dose: 4 mg Documented By: PA Imaging Data Radiologist's Impression: Abdomen/Pelvis CT 02/05/23 13:[address] WITHOUT CONTRAST CT DOSE: 1087.06 mGy.cm HISTORY: ureteral stent s/p 5 days, vomiting chills TECHNIQUE: Multiaxial CT images of the abdomen and pelvis were performed without contrast. A dose lowering technique was utilized adhering to the principles of ALARA. COMPARISON STUDY: Abdomen and pelvis CT 01/17/2023. FINDINGS: A few bibasilar linear densities likely representing subsegmental atelectasis or scarring. No pneumoperitoneum. No pneumatosis. No acute fractures. There is a tiny hiatus hernia again noted. Grade 1 anterolisthesis of L4 on L5 with degenerative changes within the lumbar spine. The unenhanced liver, gallbladder, pancreas, spleen, and adrenal glands unremarkable. There is a punctate stone within the right kidney on image 101. Stable 1.6 cm hypodense lesion within the lower pole the right kidney. This favors a cyst. No right- sided hydronephrosis. No retroperitoneal lymphadenopathy. Normal caliber abdominal aorta with mild calcified plaque. No pelvic lymphadenopathy or pelvic free fluid. Mild bladder wall thickening with adjacent fat stranding. Prior hysterectomy. Interval placement of a left ureteral stent which appears in good position. There is a 1 mm stone remaining within the proximal left ureter adjacent to the ureteral stent best seen on image 129. There are multiple left renal calculi noted which may represent fragmentation of the previous identified left UPJ stone. The dominant fragment within the lower pole measures 6 mm. Urothelial thickening within the left renal pelvis and left ureter with adjacent fat stranding has slightly progressed. Mild left perinephric edema/fat stranding has also slightly progressed. Interval improvement in the left-sided hydronephrosis with mild fullness within the left renal collecting system remaining. Suboptimal evaluation for bowel pathology due to the lack of intravenous and oral contrast. However, there is no definite bowel wall thickening or obstruction. Colonic diverticulosis. No evidence for acute diverticulitis. IMPRESSION: 1. Interval fragmentation of the left UPJ stone seen on the prior study with multiple stone fragments now seen within the left renal collecting system. There is also a 1 mm stone remaining within the left ureteropelvic junction adjacent to the left ureteral stent. Overall, the left-sided hydronephrosis has significantly improved in the interval. 2. Urothelial thickening within the left renal pelvis and left ureter with mild adjacent fat stranding has slightly progressed. This could be reactive to the recent stent placement. A superimposed pyelitis/pyelonephritis could also have a similar appearance. Recommend correlation with urinalysis. 3. Mild bladder wall thickening which could represent a cystitis. 4. No bowel wall thickening or obstruction. 5. Right-sided nephrolithiasis. No right-sided hydronephrosis. 6. Additional findings as described above. ACT 112: Negative or not required by law. Electronically signed by: Keith Nichols M.D. 02/05/2023 4:27 PM Discharge Plan Visit Data Chief Complaint: Kidney Stone Stated Complaint: CHILLS, VOMITING, FEVER, HEADACHE, KIDNEY STONE ED Provider: Lolly Damon Discharge Problem: Complicated UTI (urinary tract infection) Patient Disposition: Admitted As Inpatient Discharge Instructions Interventions: ED Discharge Assessment Last Done: 02/05/23 20:34
[2023-02-05] MEDS ORDERED: SODIUM CHLORIDE 0.9% 250 ML IV ONE (17:07)
[2023-02-05] MEDS ORDERED: ONDANSETRON INJ 2 MG/ML 2 ML VIAL IV STA (17:07)
--- NOTE | 2023-02-05 17:37 | History & Physical Report ---
Date of Service February 05, 2023 History of Present Illness Chief Complaint: Nausea Primary Care Provider: Stephen Tompkins, 02/01/2023 cystoscopy, exchange stent by Dr. Angulo 01/18/2023 cystoscopy, left stent placement left ureteral calculus with UTI, hydronephrosis Allergies Allergy/AdvReac Type Severity Reaction Status Date / Time No Known Allergies Allergy Verified 02/05/23 17:34 Home Medications Medication Instructions Recorded Confirmed Type Collagen Hydrolysate 1 dose PO DAILY 01/17/23 02/01/23 History ascorbic acid (vitamin C) 500 mg 500 mg PO DAILY 01/17/23 02/01/23 History chewable tablet (Vitamin C) cholecalciferol (vitamin D3) 10 10 mcg PO DAILY 01/17/23 02/01/23 History mcg (400 unit) tablet (Vitamin D3) cyanocobalamin (vitamin B-12) 1,000 mcg PO DAILY 01/17/23 02/01/23 History 1,000 mcg tablet (Vitamin B-12) empagliflozin 25 mg tablet 25 mg PO QAM 01/17/23 02/01/23 History (Jardiance) famotidine 20 mg tablet 20 mg PO BID 01/17/23 02/01/23 History felodipine 5 mg tablet,extended 5 mg PO QAM 01/17/23 02/01/23 History release 24 hr fluoxetine 20 mg capsule 20 mg PO QAM 01/17/23 02/01/23 History insulin glargine 100 unit/mL (3 15 unit subcut QPM 01/17/23 02/01/23 History mL) subcutaneous pen (Lantus Solostar U-100 Insulin) losartan 25 mg tablet 25 mg PO QAM 01/17/23 02/01/23 History omeprazole 20 mg capsule,delayed 20 mg PO QAM 01/17/23 02/01/23 History release semaglutide 0.25 mg or 0.5 mg (2 0.5 mg subcut Q7D 01/17/23 02/01/23 History mg/3 mL) subcutaneous pen injector (Ozempic) triamcinolone acetonide 0.1 % 1 applic topical BID PRN .flare ups 01/17/23 02/01/23 History topical cream trolamine salicylate 10 % topical 1 applic topical QID PRN Pain 01/17/23 02/01/23 History cream (Aspercreme) oxycodone 5 mg tablet 5 mg PO BID PRN severe pain (scale 01/20/23 02/01/23 Rx score 7-10) #10 tabs tamsulosin 0.4 mg capsule 0.4 mg PO QAM 01/29/23 02/01/23 History Past Med/Surg History Medical History Essential tremor 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 Anxiety and depression Aortic stenosis, mild f/u PCP Diabetes mellitus, type 2 IDDM Kidney stones GERD (gastroesophageal reflux disease) Hypertension Surgical History History of dilatation and curettage Hx of arthroscopy of right knee Hx of arthroscopy of left knee Hx of total hysterectomy with removal of both tubes and ovaries Hx of appendectomy Hx of colonoscopy Hx of bilateral cataract extraction Social History Smoking Status: Never smoker Second Hand Exposure: No; Do You Dip or Chew Tobacco: No; Hx Alcohol Use: No Hx Substance Use: No Preferred Language: Georgian Communication Ability: Effective 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
--- NOTE | 2023-02-05 18:14 | History & Physical Report ---
Date of Service February 05, 2023 Assessment & Plan (1) UTI (urinary tract infection): Plan Acute complicated UTI History of obstructive uropathy, status post lithotripsy/stent exchange on 02/01/2023 UTI as a complication of urological procedure Concern for pyelitis/cystitis/pyelonephritis Sepsis POA: Secondary to UTI Patient presenting with nausea, vomiting, chills associated with transient left flank pain. Patient recently underwent urological procedure, see above. WBC, heart rate elevated in the setting of UTI. Admitting CTAP reviewed Patient received Rocephin in the ED, continue. Probiotics added, nausea control, patient pain-free, as needed Tylenol. IVF. Follow admitting blood and urine culture. Urology consult. Mild hyponatremia: In the setting of poor appetite secondary to nausea, vomiting. Encourage p.o. intake, nausea control, BMP in a.m. Other chronic medical conditions: Continue with/resume home meds as and when able. DVT prophylaxis: Heparin subcu Full code History of Present Illness Chief Complaint: Nausea, vomiting, chills Primary Care Provider: Stephen Tompkins DO 87-year-old female with PMH of HTN, mild aortic stenosis, HLD, T2DM insulin requiring, urolithiasis who was recently admitted & discharged on 01/20/2023 for acute complicated UTI/obstructive uropathy ISO history of recurrent urolithiasis and was discharged on cefdinir course. Patient did get the stent at that admission, underwent lithotripsy and stent exchange on 02/01 presented to the ED today with complaint of nausea, dizziness, shivering, vomiting, poor appetite since Sunday night. Patient also reports transient left flank pain on Sunday night which improved by today. Patient denies any pain or burning with passing urine, denies any diarrhea. Patient states that she has not measured her temperature at home. Denies sore throat/cough/chest pain/palpitations/abdominal pain. Patient denies smoking tobacco/using alcohol/using recreational drugs. Medications discussed with the patient at bedside. Full code Plan of care discussed with the patient at bedside, she voiced understanding and was agreeable to the plan of care. Allergies Allergy/AdvReac Type Severity Reaction Status Date / Time No Known Allergies Allergy Verified 02/05/23 17:34 Home Medications Medication Instructions Recorded Confirmed Type cholecalciferol (vitamin D3) 10 10 mcg PO DAILY 01/17/23 02/05/23 History mcg (400 unit) tablet (Vitamin D3) cyanocobalamin (vitamin B-12) 1,000 mcg PO DAILY 01/17/23 02/05/23 History 1,000 mcg tablet (Vitamin B-12) empagliflozin 25 mg tablet 25 mg PO QAM 01/17/23 02/05/23 History (Jardiance) famotidine 20 mg tablet 20 mg PO BID 01/17/23 02/05/23 History felodipine 5 mg tablet,extended 5 mg PO QAM 01/17/23 02/05/23 History release 24 hr fluoxetine 20 mg capsule 20 mg PO QAM 01/17/23 02/05/23 History insulin glargine 100 unit/mL (3 15 unit subcut QPM 01/17/23 02/05/23 History mL) subcutaneous pen (Lantus Solostar U-100 Insulin) losartan 25 mg tablet 25 mg PO QAM 01/17/23 02/05/23 History omeprazole 20 mg capsule,delayed 20 mg PO QAM 01/17/23 02/05/23 History release semaglutide 0.25 mg or 0.5 mg (2 0.5 mg subcut Q7D 01/17/23 02/05/23 History mg/3 mL) subcutaneous pen injector (Ozempic) triamcinolone acetonide 0.1 % 1 applic topical BID PRN .flare ups 01/17/23 02/05/23 History topical cream trolamine salicylate 10 % topical 1 applic topical QID PRN Pain 01/17/23 02/05/23 History cream (Aspercreme) tamsulosin 0.4 mg capsule 0.4 mg PO QAM 01/29/23 02/05/23 History Past Med/Surg History Medical History Essential tremor 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 Anxiety and depression Aortic stenosis, mild f/u PCP Diabetes mellitus, type 2 IDDM Kidney stones GERD (gastroesophageal reflux disease) Hypertension Surgical History History of dilatation and curettage Hx of arthroscopy of right knee Hx of arthroscopy of left knee Hx of total hysterectomy with removal of both tubes and ovaries Hx of appendectomy Hx of colonoscopy Hx of bilateral cataract extraction Social History Smoking Status: Never smoker Second Hand Exposure: No; Do You Dip or Chew Tobacco: No; Hx Alcohol Use: No Hx Substance Use: No Preferred Language: Irish Communication Ability: Effective 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 Physical Exam Physical Exam: GENERAL: Comfortable, pleasant, obese, looks younger than stated age, no res piratory distress SKIN: Normal color, warm HEENT: [place] palpebral conjunctivae, no ptosis, dry buccal mucosa NECK : Supple, short neck, no tenderness CHEST : CTA, no tenderness HEART : RRR, no obvious murmurs ABDOMEN: soft, nontender. EXTREMITIES : Minimal LE swelling, no LE tenderness, no other conspicuous deformities noted NEUROLOGIC : Coherent, no facial asymmetry, no other gross focality No CV angle tenderness. Results & Data Results & Data Vital Signs (Past 12 Hours) Vital Signs Temp Pulse Resp BP Pulse Ox O2 Del Method 02/05/23 13:38 36.6 C 112 H 18 137/79 93 Room Air
[2023-02-05] MEDS ORDERED: GLUCAGON FOR INJ 1 MG VIAL SQ PRN (20:34)
[2023-02-05] MEDS ORDERED: CARBOHYDRATES FOR HYPOGLYCEMIA PO PRN (20:34)
[2023-02-05] MEDS ORDERED: POLYETHYLENE (MIRALAX) 17 GM PACK PO PRN (20:34)
[2023-02-05] MEDS ORDERED: GLUCOSE 10 TAB/TUBE PO PRN (20:34)
[2023-02-05] MEDS ORDERED: GLUCOSE 40% GEL 15 GM TUBE PO PRN (20:34)
[2023-02-05] MEDS ORDERED: DEXTROSE 50% 50 ML SYRINGE IV PRN (20:34)
[2023-02-05] MEDS ORDERED: MAGNESIUM HYDROXIDE SUSP 30 ML UDC PO PRN (20:34)
[2023-02-05] MEDS ORDERED: ONDANSETRON INJ 2 MG/ML 2 ML VIAL IV PRN (20:34)
[2023-02-05] MEDS: SODIUM CHLORIDE 0.9% 1,000 ML IV SCH (21:18)
[2023-02-05] MEDS: LANTUS PER UNIT CHARGE SQ SCH (21:19)
[2023-02-05] MEDS: FAMOTIDINE 20 MG TAB PO SCH (21:23)
[2023-02-05] MEDS: HEPARIN SOD 5,000 UNIT/0.5 ML VIAL SQ SCH (21:26)
[2023-02-05] MEDS: INSULIN ASPART PER UNIT CHARGE SC SCH (21:31)
[2023-02-06 07:56] LABS: Basophils # (auto) 0.02 K/uL (0.00-0.20); Basophils % (auto) 0.2 %; Eosinophils # (auto) 0.01 K/uL (0.00-0.50); Eosinophils % (auto) 0.1 %; Hematocrit (blood only) 39.3 % (37.0-47.0); Hemoglobin 12.8 g/dl (12.0-16.0); Immature Granulocytes # (auto) 0.03 K/uL (0.01-0.20); Immature Granulocytes % (auto) 0.3 %; Lymphocytes # (auto) 0.94 K/uL (1.20-3.40); Lymphocytes % (auto) 8.7 %; Mean Corpuscular Hemoglobin 28.6 pg (25.0-34.0); Mean Corpuscular Hgb Conc 32.6 g/dL (32.0-36.0); Mean Corpuscular Volume 87.9 fL (80.0-100.0); Mean Platelet Volume 10.6 fL (9.4-12.4); Monocytes # (auto) 1.06 K/uL (0.11-0.59); Monocytes % (auto) 9.8 %; Neutrophils # (auto) 8.74 K/uL (1.40-6.50); Neutrophils % (auto) 80.9 %; Platelet Count 234 K/uL (130-400); RDW Coefficient of Variation 12.3 % (11.5-14.5); RDW Standard Deviation 39.3 fL (36.4-46.3); Red Blood Count 4.47 M/uL (4.20-5.40)
[2023-02-06 08:10] LABS: BUN Creatinine Ratio 23.8 (10-20); Calcium 8.9 mg/dl (8.6-10.3); Creatinine Clr Calc Pharmacy 41.7 ml/min; Est GFR (African American) 72.4 ml/min; Est GFR (Non-African American) 62.5 ml/min; Potassium 4.1 mmol/L (3.5-5.1)
[2023-02-06] MEDS: CYANOCOBALAMIN (B-12) 500 MCG TABLET PO SCH (09:47)
[2023-02-06] MEDS: PANTOprazole 40 MG TAB PO SCH (09:47)
[2023-02-06] MEDS: FAMOTIDINE 20 MG TAB PO SCH ×2 (09:48→20:29)
[2023-02-06] MEDS: FLUoxetine HCL 20 MG CAP PO SCH (09:48)
[2023-02-06] MEDS: FELODIPINE 5 MG TABCR PO SCH (09:48)
[2023-02-06] MEDS: LOSARTAN POTASSIUM 25 MG TAB PO SCH (09:49)
[2023-02-06] MEDS: ADVANCED PROBIOTIC 1250 MG CAPSULE PO SCH (09:50)
[2023-02-06] MEDS: HEPARIN SOD 5,000 UNIT/0.5 ML VIAL SQ SCH ×2 (09:50→20:29)
[2023-02-06 09:59] LABS: A calco-baum cmplx NotReported Not Detected (NotDetected); Bact fragilis Not Reported Not Detected (NotDetected); C auris Not Reported Not Detected (NotDetected); Calbicans Not Reported Not Detected (NotDetected); Candida glabrata Not Reported Not Detected (NotDetected); Candida krusei Not Reported Not Detected (NotDetected); Cneoformans/gatti Not Reported Not Detected (NotDetected); Cparapsilosis Not Reported Not Detected (NotDetected); E cloacae compx Not Reported Not Detected (NotDetected); Efaecalis Not Reported Not Detected (NotDetected); Efaecium Not Reported Not Detected (NotDetected); Enterobacterales Not Reported Not Detected (NotDetected); Escherichia coli Not Reported Not Detected (NotDetected); H influenzae Not Reported Not Detected (NotDetected); K aerogenes Not Reported Not Detected (NotDetected); Koxytoca Not Reported Not Detected (NotDetected); Kpneumoniae grp Not Reported Not Detected (NotDetected); Lmonocyt Not Reported Not Detected (NotDetected); N meningitidis Not Reported Not Detected (NotDetected); P aeruginosa Not Reported Not Detected (NotDetected); Proteus spp Not Reported Not Detected (NotDetected); Salmonella spp Not Reported Not Detected (NotDetected); Smarcescens Not Reported Not Detected (NotDetected); Staph lugdunensis Not Reported Not Detected (NotDetected); Staph spp. Not Reported Not Detected (NotDetected); Staphaureus Not Reported Not Detected (NotDetected); Staphepi Not Reported Not Detected (NotDetected); Stenmaltophilia Not Reported Not Detected (NotDetected); Strep agal(GrpB) Not Reported Not Detected (NotDetected); Strep pneum Not Reported Not Detected (NotDetected); Strep pyog (GrpA) Not Reported Not Detected (NotDetected); Strep spp Not Reported DETECTED (NotDetected)
[2023-02-06 10:19] LABS: Streptococcus spp DETECTED (NotDetected)
[2023-02-06] MEDS: TAMSULOSIN HCL 0.4 MG CAP PO SCH (10:47)
[2023-02-06] MEDS: SODIUM CHLORIDE 0.9% 1,000 ML IV SCH (10:49)
[2023-02-06] MEDS: LANTUS PER UNIT CHARGE SQ SCH ×2 (11:10→20:28)
[2023-02-06] MEDS: INSULIN ASPART PER UNIT CHARGE SC SCH ×4 (11:12→20:27)
--- NOTE | 2023-02-06 12:30 | Urology Consultation ---
Date of Consultation February 06, 2023 Assessment & Plan (1) Complicated UTI (urinary tract infection): 87-year-old female with history of left UPJ stone status post recent left ureteroscopy, laser lithotripsy and stent exchange admitted for nausea, vomiting, and suspected UTI. Patient afebrile, mild tachycardia, otherwise stable vitals Today's labsWBC 10.8, hemoglobin 12.8, creatinine 0.84 UA with 1+ LE, >30 WBC, >30 RBC, and budding yeast Urine culture pending Blood culture w/ gram positive cocci in chains Recommend continue broad-spectrum antibiotics and narrow per sensitivity data when available Recommend start antifungal due to yeast noted in UA and yeast on prior culture CT reviewed and discussed with patient - stent is in good position, left urothelial thickening and fat stranding which may be reactive vs infection, and small stone fragments within the left renal collecting system No acute intervention at this time Recommend continue antibiotics, antifungals and supportive care Will arrange follow-up in office for stent removal after discharge will follow peripherally History of Present Illness Reason for Consultation: ureteral stent Attending Physician: Asher Mcgee MD History of Present Illness 87-year-old female with past medical history of hypertension, mild aortic stenosis, hyperlipidemia, type 2 diabetes, nephrolithiasis, left ureteral calculus status post left ureteroscopy and laser lithotripsy on 02/01 who presented to the emergency department on 02/05/2023 with nausea, vomiting and chills. On arrival, she was afebrile, tachycardic but otherwise stable vitals. Lab work showed creatinine 0.95, sodium 134, WBC 12.26, hemoglobin 15.0. Urinalysis notable for 2+ protein, 3+ urine glucose, 3+ ketones, 3+ blood, 1+ leukocyte Estrace, >30 WBC, >30 RBC, 10-20 epithelial cells, negative for bacteria, budding yeast noted. Urine and blood cultures obtained. CT abdomen pelvis s howed left ureteral stent in good position, there is interval fragmentation of the left UPJ stone seen on prior study with multiple stone fragments now within the left renal collecting system and a 1 mm stone remaining within the left UPJ adjacent to stent, improved left-sided hydronephrosis in the interval; urothelial thickening within the left renal pelvis and left ureter with mild adjacent fat stranding, mild bladder wall thickening; additional right-sided nephrolithiasis no right hydronephrosis. ED course included IV fluids, ceftriaxone and Zofran. Patient admitted for complicated UTI. Urology consulted for ureteral stent. She was previously hospitalized for left ureteral stone and UTI. She is status post left ureteral stent on 01/18/2023. She underwent definitive stone treatme nt with left ureteroscopy, laser lithotripsy and stent exchange on 02/[address] Angulo. Chart review: Afebrile, mild tachycardia, otherwise stable vitals. Labs showcreatinine 0.84, WBC 10.8, hemoglobin 12.8. Urine and blood cultures pending. Currently on ceftriaxone. Patient seen and examined in the emergency department. She is awake and resting in litter, no apparent distress. She reports feeling improved since arrival. No nausea or vomiting at present. No fever or chills. No flank discomfort at present. She is voiding spontaneously. No dysuria or hematuria, though notes darker urine. Allergies Allergy/AdvReac Type Severity Reaction Status Date / Time No Known Allergies Allergy Verified 02/05/23 17:34 Home Medications Medication Instructions Recorded Confirmed Type cholecalciferol (vitamin D3) 10 10 mcg PO DAILY 01/17/23 02/05/23 History mcg (400 unit) tablet (Vitamin D3) cyanocobalamin (vitamin B-12) 1,000 mcg PO DAILY 01/17/23 02/05/23 History 1,000 mcg tablet (Vitamin B-12) empagliflozin 25 mg tablet 25 mg PO QAM 01/17/23 02/05/23 History (Jardiance) famotidine 20 mg tablet 20 mg PO BID 01/17/23 02/05/23 History felodipine 5 mg tablet,extended 5 mg PO QAM 01/17/23 02/05/23 History release 24 hr fluoxetine 20 mg capsule 20 mg PO QAM 01/17/23 02/05/23 History insulin glargine 100 unit/mL (3 15 unit subcut QPM 01/17/23 02/05/23 History mL) subcutaneous pen (Lantus Solostar U-100 Insulin) losartan 25 mg tablet 25 mg PO QAM 01/17/23 02/05/23 History omeprazole 20 mg capsule,delayed 20 mg PO QAM 01/17/23 02/05/23 History release semaglutide 0.25 mg or 0.5 mg (2 0.5 mg subcut Q7D 01/17/23 02/05/23 History mg/3 mL) subcutaneous pen injector (Ozempic) triamcinolone acetonide 0.1 % 1 applic topical BID PRN .flare ups 01/17/23 02/05/23 History topical cream trolamine salicylate 10 % topical 1 applic topical QID PRN Pain 01/17/23 02/05/23 History cream (Aspercreme) tamsulosin 0.4 mg capsule 0.4 mg PO QAM 01/29/23 02/05/23 History Patient History Medical History Essential tremor 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 Anxiety and depression Aortic stenosis, mild f/u PCP Diabetes mellitus, type 2 IDDM Kidney stones GERD (gastroesophageal reflux disease) Hypertension Surgical History History of dilatation and curettage Hx of arthroscopy of right knee Hx of arthroscopy of left knee Hx of total hysterectomy with removal of both tubes and ovaries Hx of appendectomy Hx of colonoscopy Hx of bilateral cataract extraction Social History Smoking Status: Never smoker Second Hand Exposure: No; Do You Dip or Chew Tobacco: No; Hx Alcohol Use: No Hx Substance Use: No Preferred Language: [place] Communication Ability: Effective Mixing And Dispensing Supervisor Required: No Beliefs That Will Affect Care: None Current Living Situation: Spouse Other Information That Helps Us Care for You: No Feels Safe at Home: Yes Safety Concerns: Feels Safe At This Time Assistive Devices: Cane Review of Systems Review of Systems: All systems reviewed & are unremarkable except as noted in HPI & below Physical Exam Physical Exam: General: well-appearing, no acute distress HEENT: Normocephalic Pulmonary: Nonlabored respirations Abdomen: Nondistended Extremities: Moves all 4 spontaneously Neuro: No gross deficits Psych: alert and oriented, normal mood Skin: Warm, dry, no rashes noted : no CVA tenderness Results & Data Vital Signs (Past 12 Hours) Vital Signs Temp Pulse Pulse Resp BP Pulse Ox Pulse Ox 02/06/23 10:50 101 H 16 116/78 97 02/06/23 07:00 98 H 02/06/23 05:27 96 02/06/23 04:19 36.8 C 92 H 16 130/69 96 02/06/23 02:06 109 H 15 131/72 96 O2 Del Method O2 Del Method O2 Flow Rate O2 Flow Rate 02/06/23 10:50 Room Air 02/06/23 07:00 02/06/23 05:27 Nasal Cannula 2 02/06/23 04:19 Nasal Cannula 2 02/06/23 02:06 Room Air PG Care Time/CCT Total # of Minutes Spent Total Time Spent with Patient: Total time spent is greater than 50% in coordination of care (as documented) at patient's floor/unit and/or counseling patient: Coding Level of Care Code 67498 INT INP/OBS CARE MIN Diagnoses Complicated UTI (urinary tract infection) N39.0
[2023-02-06 12:40] LABS: A calco-baum cmplx NotReported Not Detected (NotDetected); Bact fragilis Not Reported Not Detected (NotDetected); C auris Not Reported Not Detected (NotDetected); Calbicans Not Reported Not Detected (NotDetected); Candida glabrata Not Reported Not Detected (NotDetected); Candida krusei Not Reported Not Detected (NotDetected); Cneoformans/gatti Not Reported Not Detected (NotDetected); Cparapsilosis Not Reported Not Detected (NotDetected); E cloacae compx Not Reported Not Detected (NotDetected); Efaecalis Not Reported Not Detected (NotDetected); Efaecium Not Reported Not Detected (NotDetected); Enterobacterales Not Reported Not Detected (NotDetected); Escherichia coli Not Reported Not Detected (NotDetected); H influenzae Not Reported Not Detected (NotDetected); K aerogenes Not Reported Not Detected (NotDetected); Koxytoca Not Reported Not Detected (NotDetected); Kpneumoniae grp Not Reported Not Detected (NotDetected); Lmonocyt Not Reported Not Detected (NotDetected); N meningitidis Not Reported Not Detected (NotDetected); P aeruginosa Not Reported Not Detected (NotDetected); Proteus spp Not Reported Not Detected (NotDetected); Salmonella spp Not Reported Not Detected (NotDetected); Smarcescens Not Reported Not Detected (NotDetected); Staph lugdunensis Not Reported Not Detected (NotDetected); Staph spp. Not Reported DETECTED (NotDetected); Staphaureus Not Reported Not Detected (NotDetected); Staphepi Not Reported Not Detected (NotDetected); Stenmaltophilia Not Reported Not Detected (NotDetected); Strep agal(GrpB) Not Reported Not Detected (NotDetected); Strep pneum Not Reported Not Detected (NotDetected); Strep pyog (GrpA) Not Reported Not Detected (NotDetected); Strep spp Not Reported DETECTED (NotDetected)
[2023-02-06 13:10] LABS: Staphylococcus spp. DETECTED (NotDetected)
[2023-02-06 13:11] LABS: Streptococcus spp DETECTED (NotDetected)
--- NOTE | 2023-02-06 13:43 | Electrocardiogram Report ---
Test Reason : Blood Pressure : / mmHG Vent. 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
[2023-02-06] MEDS: FLUCONAZOLE 100 MG TAB PO SCH (14:02)
--- NOTE | 2023-02-06 15:57 | Hospitalist Progress Note ---
Date of Service February 06, 2023 Assessment & Plan (1) UTI (urinary tract infection): Plan Complicated UTI H/O Obstructive uropathy, S/P lithotripsy/stent exchange on 02/01/2023 UTI as a complication of urological procedure Concern for pyelitis/cystitis/pyelonephritis Sepsis POA: Secondary to UTI Bacteremia secondary to above --CT ABD:Interval fragmentation of the left UPJ stone seen on the prior study with multiple stone fragments now seen within the left renal collecting system. There is also a 1 mm stone remaining within the left ureteropelvic junction adjacent to the left ureteral stent. Overall, the left-sided hydronephrosis has significantly improved in the interval. Urothelial thickening within the left renal pelvis and left ureter with mild adjacent fat stranding has slightly progressed. This could be reactive to the recent stent placement. A superimposed pyelitis/pyelonephritis could also have a similar appearance. Recommend correlation with urinalysis. Mild bladder wall thickening which could represent a cystitis. No bowel wall thickening or obstruction. Right-sided nephrolithiasis. No right-sided hydronephrosis. -- Blood culture 2/4 growing gram-positive cocci in chains, Gram positive cocci in clusters -- Urine culture from 01/29/2023 growing yeast not Arleth --BioFire suggestive of staph, strep species. --Will obtain ECHO -- Continue IV Rocephin for now Will repeat blood cultures tomorrow Consider ID evaluation if needed Appreciate urology input Bladder scan as needed Received IV fluids Also started on fluconazole as recommended by urology No intervention currently needed per urology Mild hyponatremia Due to GI losses Nausea, vomiting resolved Advance diet as tolerated Monitor sodium levels Received IV fluids Hypertension Mood disorder Vitamin B12 deficiency Continue home medications DM II Continue insulin per protocol Monitor BGs DVT Px: Heparin SQ Code Status Full code Admission and Anticipated Discharge Date Admission Date: February 05, 2023 Subjective Patient is seen and examined at bedside States feeling better today Admits to having increased urinary frequency Nausea, vomiting resolved Denies any chest pain, dyspnea, abdominal/flank pain, dizziness Discussed with patient's family at bedside Also discussed with urology today Review of Systems Review of Systems: All systems reviewed & are unremarkable except as noted in Subjective Physical Exam Physical Exam: Physical Exam: Vitals signs as noted above General Appearance:Moderately built and nourished, no apparent distress Head: normocephalic, Atraumatic Eyes: normal inspection, EOMI Neck: supple, Trachea midline Respiratory/Chest: Normal breath sounds, CTA, No accessory muscle use Cardiovascular: S1, S2, + murmur, Tachycardia Abdomen/GI:Soft, Non tender, Bowel sounds present Extremities/Musculoskeletal:normal inspection, no edema Neurologic/Psych:AAOX3, grossly no focal neurological deficits Skin: normal color, warm Results & Data Results & Data Vital Signs (Past 12 Hours) Vital Signs Temp Pulse Pulse Pulse Resp BP BP 02/06/23 15:00 02/06/23 14:43 36.8 C 101 H 16 105/63 02/06/23 14:38 99 H 02/06/23 13:59 99 H 25 H 130/65 02/06/23 12:36 103 H 14 113/84 02/06/23 10:50 101 H 16 116/78 02/06/23 07:00 98 H 02/06/23 05:27 02/06/23 04:19 36.8 C 92 H 16 130/69 Pulse Ox Pulse Ox O2 Del Method O2 Del Method O2 Flow Rate O2 Flow Rate 02/06/23 15:00 Room Air 02/06/23 14:43 97 Nasal Cannula 2 02/06/23 14:38 02/06/23 13:59 96 Nasal Cannula 2 02/06/23 12:36 92 Room Air 02/06/23 10:50 97 Room Air 02/06/23 07:00 02/06/23 05:27 96 Nasal Cannula 2 02/06/23 04:19 96 Nasal Cannula 2 Laboratory Results Short CBC 02/05/23 02/06/23 Range/Units 15:26 07:14 WBC 12.26 H 10.80 (4.8-10.8) K/ul Hgb 15.0 12.8 (12.0-16.0) g/dl Hct 44.9 39.3 (37.0-47.0) % Plt Count 288 234 (130-400) K/uL BMP 02/05/23 02/06/23 15:26 07:14 Sodium 134 L 138 Potassium 4.4 4.1 Chloride 98 104 Carbon Dioxide 26 25 BUN 17 20 Creatinine 0.95 0.84 Glucose 210 H 113 H Calcium 9.9 8.9 Liver Function 02/05/23 Range/Units 15:26 Total Bilirubin 0.7 (0.2-1.0) mg/dl AST 15 (13-39) U/L ALT 7 (7-52) U/L Alkaline Phosphatase 69 (34-104) U/L Albumin 4.1 (3.4-5.0) gm/dl Urine 02/05/23 Range/Units Unknown Urine Color Yellow Urine Appearance Clear (Clear) Urine pH 5.5 (4.5-7.5) Ur Specific [place] 1.031 H (1.000-1.030) Urine Protein 2+ H (Negative) Urine Glucose (UA) 3+ H (Negative)
[2023-02-06] MEDS: cefTRIAXone SODIUM 2,000 MG in DEXTROSE 5 % MINI-B 50 ML IV SCH (16:57)
[2023-02-07] MEDS: FELODIPINE 5 MG TABCR PO SCH (08:09)
[2023-02-07] MEDS: LOSARTAN POTASSIUM 25 MG TAB PO SCH (08:09)
[2023-02-07] MEDS: FLUoxetine HCL 20 MG CAP PO SCH (08:10)
[2023-02-07] MEDS: CYANOCOBALAMIN (B-12) 500 MCG TABLET PO SCH (08:10)
[2023-02-07] MEDS: PANTOprazole 40 MG TAB PO SCH (08:10)
[2023-02-07] MEDS: ADVANCED PROBIOTIC 1250 MG CAPSULE PO SCH (08:10)
[2023-02-07] MEDS: FLUCONAZOLE 100 MG TAB PO SCH (08:10)
[2023-02-07] MEDS: FAMOTIDINE 20 MG TAB PO SCH ×2 (08:11→20:29)
[2023-02-07] MEDS: TAMSULOSIN HCL 0.4 MG CAP PO SCH (08:11)
[2023-02-07 08:27] LABS: Hematocrit (blood only) 36.2 % (37.0-47.0); Hemoglobin 12.1 g/dl (12.0-16.0); Mean Corpuscular Hemoglobin 28.5 pg (25.0-34.0); Mean Corpuscular Hgb Conc 33.4 g/dL (32.0-36.0); Mean Corpuscular Volume 85.4 fL (80.0-100.0); Mean Platelet Volume 10.5 fL (9.4-12.4); Platelet Count 203 K/uL (130-400); RDW Coefficient of Variation 12.4 % (11.5-14.5); RDW Standard Deviation 38.5 fL (36.4-46.3); Red Blood Count 4.24 M/uL (4.20-5.40); White Blood Count 7.72 K/ul (4.8-10.8)
[2023-02-07 08:59] LABS: Potassium 3.7 mmol/L (3.5-5.1)
[2023-02-07 09:04] LABS: BUN Creatinine Ratio 25.9 (10-20); Est GFR (African American) 75.7 ml/min; Est GFR (Non-African American) 65.3 ml/min
[2023-02-07] MEDS: INSULIN ASPART PER UNIT CHARGE SC SCH ×4 (09:04→20:06)
[2023-02-07] MEDS: HEPARIN SOD 5,000 UNIT/0.5 ML VIAL SQ SCH ×2 (09:04→20:07)
[2023-02-07] MEDS: LANTUS PER UNIT CHARGE SQ SCH ×2 (09:06→20:07)
--- NOTE | 2023-02-07 12:11 | XRay Report ---
XR chest 1V portable HISTORY: 87 years-old Female Dyspnea acute shortness of breath COMPARISON: 01/29/2023 TECHNIQUE: AP view of the chest FINDINGS: Cardiomediastinal and hilar silhouettes are within normal limits. No pneumothorax, pleural effusion o r airspace consolidation. Bones of the chest appear grossly intact. Degenerative changes of the shoul ders and spine. Bilateral rotator cuff calcific tendinosis. IMPRESSION: No acute process of the chest. ACT 112: Negative or not required by law. The above report was generated using voice recognition software. It may contain grammatical, syntax o r spelling errors. Electronically signed by: Charlie Hotron M.D. 02/07/2023 12:09 PM
[2023-02-07] MEDS ORDERED: SODIUM CHLORIDE 0.9% 1,000 ML IV ONE (12:19)
[2023-02-07] MEDS: DOXYCYCLINE HYCLATE 100 MG CAP PO SCH ×2 (13:21→20:07)
--- NOTE | 2023-02-07 16:18 | Hospitalist Progress Note ---
Date of Service February 07, 2023 Assessment & Plan (1) UTI (urinary tract infection): Plan Complicated UTI H/O Obstructive uropathy, S/P lithotripsy/stent exchange on 02/01/2023 UTI as a complication of urological procedure Concern for pyelitis/cystitis/pyelonephritis Sepsis POA: Secondary to UTI Bacteremia secondary to above --CT ABD:Interval fragmentation of the left UPJ stone seen on the prior study with multiple stone fragments now seen within the left renal collecting system. There is also a 1 mm stone remaining within the left ureteropelvic junction adjacent to the left ureteral stent. Overall, the left-sided hydronephrosis has significantly improved in the interval. Urothelial thickening within the left renal pelvis and left ureter with mild adjacent fat stranding has slightly progressed. This could be reactive to the recent stent placement. A superimposed pyelitis/pyelonephritis could also have a similar appearance. Recommend correlation with urinalysis. Mild bladder wall thickening which could represent a cystitis. No bowel wall thickening or obstruction. Right-sided nephrolithiasis. No right-sided hydronephrosis. -- Blood culture 05/06 growing alpha strep not strep pneumo /Enterococcus, gram- positive cocci in clusters -- Urine culture from 01/29/2023 growing yeast not Arleth --BioFire suggestive of staph, strep species. --Repeat blood cultures pending --ECHO: Mild concentric LVH. EF 55 to 60%. Grade 1 diastolic dysfunction. Aortic valve leaflets are moderately calcified with mild restriction leaflet mobility, minimal stenosis. Trace aortic regurgitation. Moderate to severe mitral annular calcification. Mitral valve leaflets are thickened with redundant mitral valve chordae. Trace mitral and tricuspid regurgitation. No valvular vegetation identified. -- Continue IV Rocephin for now Consider ID evaluation if needed Appreciate urology input Bladder scan as needed Continue fluconazole as recommended by urology No intervention currently needed per urology Blood pressure low today. Monitor BP closely IV fluids as needed Mild hyponatremia Due to GI losses Nausea, vomiting resolved Advance diet as tolerated Monitor sodium levels Sodium 137 today Hypertension--hold antihypertensives given low BP Mood disorder Vitamin B12 deficiency Continue home medications DM II Continue insulin per protocol Monitor BGs H/O Stills Disease As per patient Monitor DVT Px: Heparin SQ Code Status Full code Admission and Anticipated Discharge Date Admission Date: February 05, 2023 Subjective Patient is seen and examined at bedside Reported minimal dizziness this morning Also reports having some intermittent chronic tremor Discussed with patient's family at bedside No other complaints Tolerating current diet Denies any chest pain, dyspnea, abdominal/flank pain Review of Systems Review of Systems: All systems reviewed & are unremarkable except as noted in Subjective Physical Exam Physical Exam: Physical Exam: Vitals signs as noted above General Appearance:Moderately built and nourished, no apparent distress Head: normocephalic, Atraumatic Eyes: normal inspection, EOMI Neck: supple, Trachea midline Respiratory/Chest: Normal breath sounds, CTA, No accessory muscle use Cardiovascular: S1, S2, + murmur, Tachycardia Abdomen/GI:Soft, Non tender, Bowel sounds present Extremities/Musculoskeletal:normal inspection, no edema Neurologic/Psych:AAOX3, grossly no focal neurological deficits, +Chronic intermittent tremor Skin: normal color, warm Results & Data Results & Data Vital Signs (Past 12 Hours) Vital Signs Temp Pulse Pulse Resp BP BP Pulse Ox 02/07/23 15:38 102 H 02/07/23 15:30 36.7 C 94 H 18 104/64 94 02/07/23 12:14 36.7 C 104 H 18 114/61 91 02/07/23 11:11 36.5 C 93 H 18 94/55 L 91 02/07/23 10:00 02/07/23 08:34 36.9 C 91 H 18 101/63 94 02/07/23 07:00 77 O2 Del Method 02/07/23 15:38 02/07/23 15:30 Room Air 02/07/23 12:14 Room Air 02/07/23 11:11 Room Air 02/07/23 10:00 Room Air 02/07/23 08:34 Room Air 02/07/23 07:00 Laboratory Results Short CBC 02/07/23 Range/Units 08:17 WBC 7.72 (4.8-10.8) K/ul Hgb 12.1 (12.0-16.0) g/dl Hct 36.2 L (37.0-47.0) % Plt Count 203 (130-400) K/uL BMP 02/07/23 08:17 Sodium 137 Potassium 3.7 Chloride 105 Carbon Dioxide 25 BUN 21 Creatinine 0.81 Glucose 148 H Calcium 9.0
[2023-02-07] MEDS: cefTRIAXone SODIUM 2,000 MG in DEXTROSE 5 % MINI-B 50 ML IV SCH (17:51)
[2023-02-08] MEDS: TAMSULOSIN HCL 0.4 MG CAP PO SCH (08:07)
[2023-02-08] MEDS: PANTOprazole 40 MG TAB PO SCH (08:07)
[2023-02-08] MEDS: ADVANCED PROBIOTIC 1250 MG CAPSULE PO SCH (08:07)
[2023-02-08] MEDS: FLUoxetine HCL 20 MG CAP PO SCH (08:07)
[2023-02-08] MEDS: CYANOCOBALAMIN (B-12) 500 MCG TABLET PO SCH (08:07)
[2023-02-08] MEDS: FLUCONAZOLE 100 MG TAB PO SCH (08:07)
[2023-02-08] MEDS: HEPARIN SOD 5,000 UNIT/0.5 ML VIAL SQ SCH ×2 (08:07→21:12)
[2023-02-08] MEDS: DOXYCYCLINE HYCLATE 100 MG CAP PO SCH ×2 (08:07→21:12)
[2023-02-08] MEDS: FAMOTIDINE 20 MG TAB PO SCH ×2 (08:39→21:12)
[2023-02-08] MEDS: INSULIN ASPART PER UNIT CHARGE SC SCH ×4 (09:27→21:12)
[2023-02-08] MEDS: LANTUS PER UNIT CHARGE SQ SCH ×2 (09:27→21:11)
--- NOTE | 2023-02-08 14:18 | Hospitalist Progress Note ---
Date of Service February 08, 2023 Assessment & Plan (1) UTI (urinary tract infection): Plan Complicated UTI H/O Obstructive uropathy, S/P lithotripsy/stent exchange on 02/01/2023 UTI as a complication of urological procedure Concern for pyelitis/cystitis/pyelonephritis Sepsis POA following lithotripsy/stent exchange on 02/01/2023 Suspected Bacteremia secondary to above 01/17/23 urine culture grew pansensitive E. coli. Was placed on cefdinir on discharge --CT ABD:Interval fragmentation of the left UPJ stone seen on the prior study with multiple stone fragments now seen within the left renal collecting system. There is also a 1 mm stone remaining within the left ureteropelvic junction adjacent to the left ureteral stent. Overall, the left-sided hydronephrosis has significantly improved in the interval. Urothelial thickening within the left renal pelvis and left ureter with mild adjacent fat stranding has slightly progressed. This could be reactive to the recent stent placement. A superimposed pyelitis/pyelonephritis could also have a similar appearance. Recommend correlation with urinalysis. Mild bladder wall thickening which could represent a cystitis. No bowel wall thickening or obstruction. Right-sided nephrolithi asis. No right-sided hydronephrosis. -- Blood culture / growing alpha strep not strep pneumo /Enterococcus, gram- positive cocci in clusters -- Urine culture from 01/29/2023 growing yeast not Arleth --BioFire suggestive of staph, strep species. --Repeat blood cultures negative to date --ECHO: Mild concentric LVH. EF 55 to 60%. Grade 1 diastolic dysfunction. Aortic valve leaflets are moderately calcified with mild restriction leaflet mobility, minimal stenosis. Trace aortic regurgitation. Moderate to severe mitral annular calcification. Mitral valve leaflets are thickened with redundant mitral valve chordae. Trace mitral and tricuspid regurgitation. No valvular vegetation identified. -- Continue IV Rocephin for now Consider ID evaluation if needed Appreciate urology input Bladder scan as needed Continue fluconazole as recommended by urology No intervention currently needed per urology IV fluids as needed Clinically improving Mild hyponatremia Due to GI losses Nausea, vomiting resolved Advance diet as tolerated Monitor sodium levels Sodium 137 today Hypertension--hold antihypertensives given low BP Mood disorder Vitamin B12 deficiency Continue home medications DM II Continue insulin per protocol Monitor BGs H/O Stills Disease As per patient Monitor DVT Px: Heparin SQ Code Status Full code Disposition PT/OT prior to discharge Admission and Anticipated Discharge Date Admission Date: February 05, 2023 Subjective Patient is seen and examined at bedside States having minimal cough Feels better today Dizziness resolved No trauma today Denies any chest pain, dyspnea, abdominal/flank pain Blood cultures pending Review of Systems Review of Systems: All systems reviewed & are unremarkable except as noted in Subjective Physical Exam Physical Exam: Physical Exam: Vitals signs as noted above General Appearance:Moderately built and nourished, no apparent distress Head: normocephalic, Atraumatic Eyes: normal inspection, EOMI Neck: supple, Trachea midline Respiratory/Chest: Normal breath sounds, CTA, No accessory muscle use Cardiovascular: S1, S2, + murmur Abdomen/GI:Soft, Non tender, Bowel sounds present Extremities/Musculoskeletal:normal inspection, no edema Neurologic/Psych:AAOX3, grossly no focal neurological deficits, +Chronic intermittent tremor Skin: normal color, warm Results & Data Results & Data Vital Signs (Past 12 Hours) Vital Signs Temp Pulse Pulse Resp BP BP Pulse Ox 02/08/23 11:07 36.5 C 91 H 18 120/76 95 02/08/23 08:00 02/08/23 07:50 36.9 C 84 20 111/68 94 02/08/23 07:18 85 02/08/23 04:00 36.8 C 84 18 108/69 95 O2 Del Method 02/08/23 11:07 Room Air 02/08/23 08:00 Room Air 02/08/23 07:50 Room Air 02/08/23 07:18 02/08/23 04:00 Room Air
[2023-02-08] MEDS: cefTRIAXone SODIUM 2,000 MG in DEXTROSE 5 % MINI-B 50 ML IV SCH (17:33)
[2023-02-09 06:19] LABS: Hematocrit (blood only) 35.4 % (37.0-47.0); Hemoglobin 11.7 g/dl (12.0-16.0); Mean Corpuscular Hemoglobin 28.8 pg (25.0-34.0); Mean Corpuscular Hgb Conc 33.1 g/dL (32.0-36.0); Mean Corpuscular Volume 87.2 fL (80.0-100.0); Mean Platelet Volume 11.1 fL (9.4-12.4); Platelet Count 212 K/uL (130-400); RDW Coefficient of Variation 12.1 % (11.5-14.5); RDW Standard Deviation 38.9 fL (36.4-46.3); Red Blood Count 4.06 M/uL (4.20-5.40); White Blood Count 5.47 K/ul (4.8-10.8)
[2023-02-09 06:32] LABS: BUN Creatinine Ratio 21.6 (10-20); Calcium 9.4 mg/dl (8.6-10.3); Est GFR (African American) 84.4 ml/min; Est GFR (Non-African American) 72.8 ml/min; Potassium 3.7 mmol/L (3.5-5.1)
[2023-02-09] MEDS: LANTUS PER UNIT CHARGE SQ SCH ×2 (08:54→21:08)
[2023-02-09] MEDS: INSULIN ASPART PER UNIT CHARGE SC SCH ×4 (08:54→21:08)
[2023-02-09] MEDS: CYANOCOBALAMIN (B-12) 500 MCG TABLET PO SCH (08:56)
[2023-02-09] MEDS: DOXYCYCLINE HYCLATE 100 MG CAP PO SCH ×2 (08:57→20:00)
[2023-02-09] MEDS: FAMOTIDINE 20 MG TAB PO SCH ×2 (08:57→20:01)
[2023-02-09] MEDS: FLUoxetine HCL 20 MG CAP PO SCH (09:02)
[2023-02-09] MEDS: FLUCONAZOLE 100 MG TAB PO SCH (09:02)
[2023-02-09] MEDS: PANTOprazole 40 MG TAB PO SCH (09:03)
[2023-02-09] MEDS: ADVANCED PROBIOTIC 1250 MG CAPSULE PO SCH (09:03)
[2023-02-09] MEDS: TAMSULOSIN HCL 0.4 MG CAP PO SCH (09:03)
[2023-02-09] MEDS: HEPARIN SOD 5,000 UNIT/0.5 ML VIAL SQ SCH ×2 (09:03→20:00)
--- NOTE | 2023-02-09 10:25 | Hospitalist Progress Note ---
Date of Service February 09, 2023 Assessment & Plan (1) UTI (urinary tract infection): Plan Complicated UTI H/O Obstructive uropathy, S/P lithotripsy/stent exchange on 02/01/2023 UTI as a complication of urological procedure Concern for pyelitis/cystitis/pyelonephritis Sepsis POA following lithotripsy/stent exchange on 02/01/2023 Suspected Bacteremia secondary to above 01/17/23 urine culture grew pansensitive E. coli. Was placed on cefdinir on discharge --CT ABD:Interval fragmentation of the left UPJ stone seen on the prior study with multiple stone fragments now seen within the left renal collecting system. There is also a 1 mm stone remaining within the left ureteropelvic junction adjacent to the left ureteral stent. Overall, the left-sided hydronephrosis has significantly improved in the interval. Urothelial thickening within the left renal pelvis and left ureter with mild adjacent fat stranding has slightly progressed. This could be reactive to the recent stent placement. A superimposed pyelitis/pyelonephritis could also have a similar appearance. Recommend correlation with urinalysis. Mild bladder wall thickening which could represent a cystitis. No bowel wall thickening or obstruction. Right-sided nephrolithiasis. No right-sided hydronephrosis. -- Blood culture 2/ growing alpha strep not strep pneumo /Enterococcus, gram- positive cocci in clusters -- Urine culture from 01/29/2023 growing yeast not Arleth --BioFire suggestive of staph, strep species. --Repeat blood cultures negative to date --ECHO: Mild concentric LVH. EF 55 to 60%. Grade 1 diastolic dysfunction. Aortic valve leaflets are moderately calcified with mild restriction leaflet mobility, minimal stenosis. Trace aortic regurgitation. Moderate to severe mitral annular calcification. Mitral valve leaflets are thickened with redundant mitral valve chordae. Trace mitral and tricuspid regurgitation. No valvular vegetation identified. -- Continue IV Rocephin for now will further discuss w/ ID Appreciate urology input Bladder scan as needed Continue fluconazole as recommended by urology No intervention currently needed per urology IV fluids as needed Clinically improved Mild hyponatremia Due to GI losses Nausea, vomiting resolved Advance diet as tolerated Monitor sodium levels Sodium 141 today Hypertension--hold antihypertensives given lower BP Mood disorder Vitamin B12 deficiency Continue home medications DM II Continue insulin per protocol Monitor BGs H/O Stills Disease As per patient Monitor DVT Px: Heparin SQ Code Status Full code Disposition PT/OT prior to discharge Admission and Anticipated Discharge Date Admission Date: February 05, 2023 Subjective Patient is seen and examined at bedside Feels better overall Dizziness resolved Nausea resolved Urinating without difficulty Denies any chest pain, shortness of breath, abdominal/flank pain Blood cultures pending Review of Systems Review of Systems: All systems reviewed & are unremarkable except as noted in Subjective Physical Exam Physical Exam: General Appearance:Moderately built and nourished, no apparent distress Head: normocephalic, Atraumatic Eyes: normal inspection, EOMI Neck: supple, Trachea midline Respiratory/Chest: Normal breath sounds, CTA, No accessory muscle use Cardiovascular: S1, S2, + murmur Abdomen/GI:Soft, Non tender, Bowel sounds present Extremities/Musculoskeletal:normal inspection, no edema Neurologic/Psych:AAOX3, grossly no focal neurological deficits, +Chronic intermittent tremor Skin: normal color, warm Results & Data Results & Data Vital Signs (Past 12 Hours) Vital Signs Temp Pulse Pulse Resp BP BP Pulse Ox 02/09/23 07:42 84 02/09/23 04:00 36.8 C 96 H 18 132/82 96 02/09/23 00:00 37.0 C 87 18 111/69 97 O2 Del Method 02/09/23 07:42 02/09/23 04:00 Room Air 02/09/23 00:00 Room Air Laboratory Results 02/09/23 02/09/23 02/08/23 Range/Units 08:22 05:35 20:36 WBC 5.47 (4.8-10.8) K/ul RBC 4.06 L (4.20-5.40) M/uL Hgb 11.7 L (12.0-16.0) g/dl Hct 35.4 L (37.0-47.0) % MCV 87.2 (80.0-100.0) fL MCH 28.8 (25.0-34.0) pg MCHC 33.1 (32.0-36.0) g/dL RDW Std Deviation 38.9 (36.4-46.3) fL RDW Coeff of Augustina 12.1 (11.5-14.5) % Plt Count 212 (130-400) K/uL MPV 11.1 (9.4-12.4) fL Sodium 141 (136-145) mmol/L Potassium 3.7 (3.5-5.1) mmol/L Chloride 109 H (98-107) mmol/L Carbon Dioxide 26 (21-32) mmol/L Anion Gap 6 (3-11) BUN 16 (6-23) mg/dl Creatinine 0.74 (0.6-1.2) mg/dl Est Cr Clr Drug Dosing 48.0 ml/min Est GFR ( Amer) 84.4 ml/min Est GFR (Non-Af Amer) 72.8 ml/min BUN/Creatinine Ratio 21.6 H (10-20) Glucose 131 H (70-99(Fasting)) mg/dl POC Glucose 113 H 206 H (70-99) mg/dl Calcium 9.4 (8.6-10.3) mg/dl 02/08/23 02/08/23 Range/Units 16:58 12:02 WBC (4.8-10.8) K/ul RBC (4.20-5.40) M/uL Hgb (12.0-16.0) g/dl Hct (37.0-47.0) % MCV (80.0-100.0) fL MCH (25.0-34.0) pg MCHC (32.0-36.0) g/dL RDW Std Deviation (36.4-46.3) fL RDW Coeff of Augustina (11.5-14.5) % Plt Count (130-400) K/uL MPV (9.4-12.4) fL Sodium (136-145) mmol/L Potassium (3.5-5.1) mmol/L Chloride (98-107) mmol/L Carbon Dioxide (21-32) mmol/L Anion Gap (3-11) BUN (6-23) mg/dl Creatinine (0.6-1.2) mg/dl Est Cr Clr Drug Dosing ml/min Est GFR ( Amer) ml/min Est GFR (Non-Af Amer) ml/min BUN/Creatinine Ratio (10-20) Glucose (70-99(Fasting)) mg/dl POC Glucose 131 H 187 H (70-99) mg/dl Calcium (8.6-10.3) mg/dl Medications Administered Current Inpatient Medications Acetaminophen (Acetaminophen 325 Mg Tab) 650 mg PO Q4H PRN PRN Reason: Pain or Fever Stop: 03/07/23 20:33 Cyanocobalamin (Cyanocobalamin (B-12) 500 Mcg Tablet) 1,000 mcg PO DAILY [facility] Stop: 03/08/23 08:59 Last Admin: 02/09/23 08:56 Dose: 1,000 mcg Dextrose (Dextrose 50% 50 Ml Syringe) 25 - 50 ml IV UD PRN; Protocol PRN Reason: Hypoglycemia Protocol Stop: 03/07/23 20:33 Doxycycline Hyclate (Doxycycline Hyclate 100 Mg Cap) 100 mg PO BID [facility] Stop: 02/12/23 12:29 Last Admin: 02/09/23 08:57 Dose: 100 mg Famotidine (Famotidine 20 Mg Tab) 20 mg PO BID [facility] Stop: 03/07/23 20:59 Last Admin: 02/09/23 08:57 Dose: 20 mg Felodipine (Felodipine 5 Mg Tabcr) 5 mg PO QAM [facility] Stop: 03/08/23 08:59 Last Admin: 02/07/23 08:09 Dose: 5 mg Fluconazole (Fluconazole 100 Mg Tab) 100 mg PO QAM [facility] Stop: 02/16/23 12:59 Last Admin: 02/09/23 09:02 Dose: 100 mg Fluoxetine HCl (Fluoxetine Hcl 20 Mg Cap) 20 mg PO QAM [facility] Stop: 03/08/23 08:59 Last Admin: 02/09/23 09:02 Dose: 20 mg Glucagon (Glucagon For Inj 1 Mg Vial) 1 mg SQ UD PRN; Protocol PRN Reason: Hypoglycemia Protocol Stop: 03/07/23 20:33 Glucose (Glucose 10 Tab/Tube) 4 - 8 tab PO UD PRN; Protocol PRN Reason: Hypoglycemia Treatment Stop: 03/07/23 20:33 Glucose (Glucose 40% Gel 15 Gm Tube) 15 - 30 gm PO UD PRN; Protocol PRN Reason: Hypoglycemia Protocol Stop: 03/07/23 20:33 Heparin Sodium (Porcine) (Heparin Sod 5,000 Unit/0.5 Ml Vial) 5,000 units SQ Q12 [facility] Stop: 03/07/23 20:59 Last Admin: 02/09/23 09:03 Dose: 5,000 units Ceftriaxone Sodium 2,000 mg/ (Dextrose) 50 mls @ 100 mls/hr IV Q24H [facility]; Protocol Stop: 02/16/23 16:59 Last Infusion: 02/08/23 18:16 Dose: Infused Insulin Aspart (Insulin Aspart Per Unit Charge) 0 units SC ACHS [facility] Stop: 03/07/23 20:59 Last Admin: 02/09/23 08:54 Dose: 1 units Insulin Glargine (Lantus Per Unit Charge) 8 units SQ BID [facility] Stop: 03/07/23 20:59 Last Admin: 02/09/23 08:54 Dose: 8 units Lactobacillus Acidophilus (Advanced Probiotic 1250 Mg Capsule) 2 cap PO DAILY [facility] Stop: 03/08/23 08:59 Last Admin: 02/09/23 09:03 Dose: 2 cap Losartan Potassium (Losartan Potassium 25 Mg Tab) 25 mg PO QAM [facility] Stop: 03/08/23 08:59 Last Admin: 02/07/23 08:09 Dose: 25 mg Magnesium Hydroxide (Magnesium Hydroxide Susp 30 Ml Udc) 30 ml PO Q12H PRN PRN Reason: Constipation Stop: 03/07/23 20:33 Miscellaneous (Carbohydrates For Hypoglycemia ) 15 - 30 gm PO UD PRN PRN Reason: Hypoglycemia Protocol Stop: 03/07/23 20:33 Pantoprazole Sodium (Pantoprazole 40 Mg Tab) 40 mg PO QAM [facility] Stop: 03/08/23 08:59 Last Admin: 02/09/23 09:03 Dose: 40 mg Polyethylene Glycol (Polyethylene (Miralax) 17 Gm Pack) 17 gm PO DAILY PRN PRN Reason: Constipation Stop: 03/07/23 20:33 Last Admin: 02/07/23 08:19 Dose: 17 gm Tamsulosin HCl (Tamsulosin Hcl 0.4 Mg Cap) 0.4 mg PO QAM [facility] Stop: 03/08/23 08:59 Last Admin: 02/09/23 09:03 Dose: 0.4 mg
[2023-02-09] MEDS: cefTRIAXone SODIUM 2,000 MG in DEXTROSE 5 % MINI-B 50 ML IV SCH (18:37)
[2023-02-10 06:10] LABS: Hematocrit (blood only) 37.2 % (37.0-47.0); Hemoglobin 12.1 g/dl (12.0-16.0); Mean Corpuscular Hemoglobin 28.5 pg (25.0-34.0); Mean Corpuscular Hgb Conc 32.5 g/dL (32.0-36.0); Mean Corpuscular Volume 87.7 fL (80.0-100.0); Platelet Count 230 K/uL (130-400); RDW Coefficient of Variation 11.9 % (11.5-14.5); RDW Standard Deviation 38.4 fL (36.4-46.3); Red Blood Count 4.24 M/uL (4.20-5.40); White Blood Count 6.16 K/ul (4.8-10.8)
[2023-02-10 06:30] LABS: BUN Creatinine Ratio 18.9 (10-20); Calcium 9.7 mg/dl (8.6-10.3); Creatinine Clr Calc Pharmacy 39.4 ml/min; Est GFR (African American) 66.6 ml/min; Est GFR (Non-African American) 57.5 ml/min; Magnesium 1.8 mg/dl (1.7-2.4); Phosphorus 3.5 mg/dl (2.5-4.9); Potassium 3.8 mmol/L (3.5-5.1)
[2023-02-10] MEDS: INSULIN ASPART PER UNIT CHARGE SC SCH ×4 (08:51→20:29)
[2023-02-10] MEDS: FLUoxetine HCL 20 MG CAP PO SCH (08:55)
[2023-02-10] MEDS: HEPARIN SOD 5,000 UNIT/0.5 ML VIAL SQ SCH ×2 (08:55→20:30)
[2023-02-10] MEDS: FAMOTIDINE 20 MG TAB PO SCH ×2 (08:55→20:30)
[2023-02-10] MEDS: DOXYCYCLINE HYCLATE 100 MG CAP PO SCH ×2 (08:55→20:30)
[2023-02-10] MEDS: FLUCONAZOLE 100 MG TAB PO SCH (08:55)
[2023-02-10] MEDS: CYANOCOBALAMIN (B-12) 500 MCG TABLET PO SCH (08:55)
[2023-02-10] MEDS: PANTOprazole 40 MG TAB PO SCH (08:56)
[2023-02-10] MEDS: TAMSULOSIN HCL 0.4 MG CAP PO SCH (08:56)
[2023-02-10] MEDS: ADVANCED PROBIOTIC 1250 MG CAPSULE PO SCH (08:56)
[2023-02-10] MEDS: LANTUS PER UNIT CHARGE SQ SCH ×2 (08:59→20:29)
--- NOTE | 2023-02-10 14:00 | Hospitalist Progress Note ---
Date of Service February 10, 2023 Assessment & Plan (1) UTI (urinary tract infection): Plan Complicated UTI H/O Obstructive uropathy, S/P lithotripsy/stent exchange on 02/01/2023 UTI as a complication of urological procedure Concern for pyelitis/cystitis/pyelonephritis Sepsis POA following lithotripsy/stent exchange on 02/01/2023 Suspected Bacteremia secondary to above 01/17/23 urine culture grew pansensitive E. coli. Was placed on cefdinir on discharge --CT ABD:Interval fragmentation of the left UPJ stone seen on the prior study with multiple stone fragments now seen within the left renal collecting system. There is also a 1 mm stone remaining within the left ureteropelvic junction adjacent to the left ureteral stent. Overall, the left-sided hydronephrosis has significantly improved in the interval. Urothelial thickening within the left renal pelvis and left ureter with mild adjacent fat stranding has slightly progressed. This could be reactive to the recent stent placement. A superimposed pyelitis/pyelonephritis could also have a similar appearance. Recommend correlation with urinalysis. Mild bladder wall thickening which could represent a cystitis. No bowel wall thickening or obstruction. Right-sided nephrolithiasis. No right-sided hydronephrosis. -- Blood culture / growing alpha strep not strep pneumo /Enterococcus, gram- positive cocci in clusters -- Urine culture from 01/29/2023 growing yeast not Arleth --[employer] suggestive of staph, strep species. --Repeat blood cultures negative to date --ECHO: Mild concentric LVH. EF 55 to 60%. Grade 1 diastolic dysfunction. Aortic valve leaflets are moderately calcified with mild restriction leaflet mobility, minimal stenosis. Trace aortic regurgitation. Moderate to severe mitral annular calcification. Mitral valve leaflets are thickened with redundant mitral valve chordae. Trace mitral and tricuspid regurgitation. No valvular vegetation identified. -- Continue IV Rocephin for now Appreciate urology input Bladder scan as needed Continue fluconazole as recommended by urology No intervention currently needed per urology IV fluids as needed Clinically improved , discussed w/ ID Plan to discharge tmrw Mild hyponatremia Due to GI losses Nausea, vomiting resolved Advance diet as tolerated Monitor sodium levels Sodium 141 today Hypertension--hold antihypertensives given lower BP Mood disorder Vitamin B12 deficiency Continue home medications DM II Continue insulin per protocol Monitor BGs H/O Stills Disease As per patient Monitor DVT Px: Heparin SQ Code Status Full code Disposition, plan to discharge home tmrw Admission and Anticipated Discharge Date Admission Date: February 05, 2023 Subjective Patient is seen and examined at bedside Feels better overall Dizziness resolved Nausea resolved Urinating without difficulty, however reports frequency Denies any chest pain, shortness of breath, abdominal/flank pain Blood cultures pending Discussed w/ ID Plan to discharge tomorrow Review of Systems 2 Review of Systems: All systems reviewed & are unremarkable except as noted in Subjective Physical Exam Physical Exam: General Appearance:Moderately built and nourished, no apparent distress Head: normocephalic, Atraumatic Eyes: normal inspection, EOMI Neck: supple, Trachea midline Respiratory/Chest: Normal breath sounds, CTA, No accessory muscle use Cardiovascular: S1, S2, + murmur Abdomen/GI:Soft, Non tender, Bowel sounds present Extremities/Musculoskeletal:normal inspection, no edema Neurologic/Psych:AAOX3, grossly no focal neurological deficits, +Chronic intermittent tremor Skin: normal color, warm Results & Data Results & Data Vital Signs (Past 12 Hours) Vital Signs Temp Pulse Pulse Resp BP BP Pulse Ox 02/10/23 11:48 36.7 C 82 18 116/74 95 02/10/23 08:04 36.7 C 84 18 135/80 96 02/10/23 07:02 82 02/10/23 04:03 36.7 C 94 H 18 123/70 93 O2 Del Method 02/10/23 11:48 Room Air 02/10/23 08:04 Room Air 02/10/23 07:02 02/10/23 04:03 Room Air Laboratory Results 02/10/23 02/10/23 02/10/23 Range/Units 12:09 08:27 05:40 WBC 6.16 (4.8-10.8) K/ul RBC 4.24 (4.20-5.40) M/uL Hgb 12.1 (12.0-16.0) g/dl Hct 37.2 (37.0-47.0) % MCV 87.7 (80.0-100.0) fL MCH 28.5 (25.0-34.0) pg MCHC 32.5 (32.0-36.0) g/dL RDW Std Deviation 38.4 (36.4-46.3) fL RDW Coeff of Augustina 11.9 (11.5-14.5) % Plt Count 230 (130-400) K/uL MPV 11.0 (9.4-12.4) fL Sodium 141 (136-145) mmol/L Potassium 3.8 (3.5-5.1) mmol/L Chloride 106 (98-107) mmol/L Carbon Dioxide 30 (21-32) mmol/L Anion Gap 5 (3-11) BUN 17 (6-23) mg/dl Creatinine 0.90 (0.6-1.2) mg/dl Est Cr Clr Drug Dosing 39.4 ml/min Est GFR ( Amer) 66.6 ml/min Est GFR (Non-Af Amer) 57.5 ml/min BUN/Creatinine Ratio 18.9 (10-20) Glucose 164 H (70-99(Fasting)) mg/dl POC Glucose 154 H 137 H (70-99) mg/dl Calcium 9.7 (8.6-10.3) mg/dl Phosphorus 3.5 (2.5-4.9) mg/dl Magnesium 1.8 (1.7-2.4) mg/dl 02/09/23 02/09/23 Range/Units 21:01 17:35 WBC (4.8-10.8) K/ul RBC (4.20-5.40) M/uL Hgb (12.0-16.0) g/dl Hct (37.0-47.0) % MCV (80.0-100.0) fL MCH (25.0-34.0) pg MCHC (32.0-36.0) g/dL RDW Std Deviation (36.4-46.3) fL RDW Coeff of Augustina (11.5-14.5) % Plt Count (130-400) K/uL MPV (9.4-12.4) fL Sodium (136-145) mmol/L Potassium (3.5-5.1) mmol/L Chloride (98-107) mmol/L Carbon Dioxide (21-32) mmol/L Anion Gap (3-11) BUN (6-23) mg/dl Creatinine (0.6-1.2) mg/dl Est Cr Clr Drug Dosing ml/min Est GFR ( Amer) ml/min Est GFR (Non-Af Amer) ml/min BUN/Creatinine Ratio (10-20) Glucose (70-99(Fasting)) mg/dl POC Glucose 159 H 122 H (70-99) mg/dl Calcium (8.6-10.3) mg/dl Phosphorus (2.5-4.9) mg/dl Magnesium (1.7-2.4) mg/dl Medications Administered Current Inpatient Medications Acetaminophen (Acetaminophen 325 Mg Tab) 650 mg PO Q4H PRN PRN Reason: Pain or Fever Stop: 03/07/23 20:33 Cyanocobalamin (Cyanocobalamin (B-12) 500 Mcg Tablet) 1,000 mcg PO DAILY [facility] Stop: 03/08/23 08:59 Last Admin: 02/10/23 08:55 Dose: 1,000 mcg Dextrose (Dextrose 50% 50 Ml Syringe) 25 - 50 ml IV UD PRN; Protocol PRN Reason: Hypoglycemia Protocol Stop: 03/07/23 20:33 Doxycycline Hyclate (Doxycycline Hyclate 100 Mg Cap) 100 mg PO BID [facility] Stop: 02/12/23 12:29 Last Admin: 02/10/23 08:55 Dose: 100 mg Famotidine (Famotidine 20 Mg Tab) 20 mg PO BID [facility] Stop: 03/07/23 20:59 Last Admin: 02/10/23 08:55 Dose: 20 mg Felodipine (Felodipine 5 Mg Tabcr) 5 mg PO QAM [facility] Stop: 03/08/23 08:59 Last Admin: 02/07/23 08:09 Dose: 5 mg Fluconazole ([facility] 100 Mg Tab) [facility] Stop: 02/16/23 12:59 Last Admin: 02/10/23 08:55 Dose: 100 mg Fluoxetine HCl (Fluoxetine Hcl 20 Mg Cap) 20 mg PO QAM [facility] Stop: 03/08/23 08:59 Last Admin: 02/10/23 08:55 Dose: 20 mg Glucagon (Glucagon For Inj 1 Mg Vial) 1 mg SQ UD PRN; Protocol PRN Reason: Hypoglycemia Protocol Stop: 03/07/23 20:33 Glucose (Glucose 10 Tab/Tube) 4 - 8 tab PO UD PRN; Protocol PRN Reason: Hypoglycemia Treatment Stop: 03/07/23 20:33 Glucose (Glucose 40% Gel 15 Gm Tube) 15 - 30 gm PO UD PRN; Protocol PRN Reason: Hypoglycemia Protocol Stop: 12/06/23 20:33 Heparin Sodium (Porcine) (Heparin Sod 5,000 Unit/0.5 Ml Vial) 5,000 units SQ Q12 [facility] Stop: 03/07/23 20:59 Last Admin: 02/10/23 08:55 Dose: 5,000 units Ceftriaxone Sodium 2,000 mg/ (Dextrose) 50 mls @ 100 mls/hr IV Q24H [facility]; Protocol Stop: 02/16/23 16:59 Last Infusion: 02/09/23 19:36 Dose: Infused Insulin Aspart (Insulin Aspart Per Unit Charge) 0 units SC ACHS [facility] Stop: 03/07/23 20:59 Last Admin: 02/10/23 13:33 Dose: 3 units Insulin Glargine (Lantus Per Unit Charge) 8 units SQ BID [facility] Stop: 03/07/23 20:59 Last Admin: 02/10/23 08:59 Dose: 8 units Lactobacillus Acidophilus (Advanced Probiotic 1250 Mg Capsule) 2 cap PO DAILY [facility] Stop: 03/08/23 08:59 Last Admin: 02/10/23 08:56 Dose: 2 cap Losartan Potassium (Losartan Potassium 25 Mg Tab) 25 mg PO QAM [facility] Stop: 03/08/23 08:59 Last Admin: 02/07/23 08:09 Dose: 25 mg Magnesium Hydroxide (Magnesium Hydroxide Susp 30 Ml Udc) 30 ml PO Q12H PRN PRN Reason: Constipation Stop: 03/07/23 20:33 Miscellaneous (Carbohydrates For Hypoglycemia ) 15 - 30 gm PO UD PRN PRN Reason: Hypoglycemia Protocol Stop: 03/07/23 20:33 Pantoprazole Sodium (Pantoprazole 40 Mg Tab) 40 mg PO QAM [facility] Stop: 03/08/23 08:59 Last Admin: 02/10/23 08:56 Dose: 40 mg Polyethylene Glycol (Polyethylene (Miralax) 17 Gm Pack) 17 gm PO DAILY PRN PRN Reason: Constipation Stop: 03/07/23 20:33 Last Admin: 02/07/23 08:19 Dose: 17 gm Tamsulosin HCl (Tamsulosin Hcl 0.4 Mg Cap) 0.4 mg PO QAM [facility] Stop: 03/08/23 08:59 Last Admin: 02/10/23 08:56 Dose: 0.4 mg
[2023-02-10] MEDS: cefTRIAXone SODIUM 2,000 MG in DEXTROSE 5 % MINI-B 50 ML IV SCH (16:58)
[2023-02-10] MEDS: ACETAMINOPHEN 325 MG TAB PO PRN (20:29)
[2023-02-10] MEDS: DICLOFENAC SOD 1% GEL 100 GM TUBE EXT PRN (21:18)
[2023-02-11] MEDS: ACETAMINOPHEN 325 MG TAB PO PRN ×2 (03:05→08:38)
[2023-02-11] MEDS: CYANOCOBALAMIN (B-12) 500 MCG TABLET PO SCH (08:40)
[2023-02-11] MEDS: HEPARIN SOD 5,000 UNIT/0.5 ML VIAL SQ SCH (08:41)
[2023-02-11] MEDS: FLUoxetine HCL 20 MG CAP PO SCH (08:41)
[2023-02-11] MEDS: FAMOTIDINE 20 MG TAB PO SCH (08:41)
[2023-02-11] MEDS: DOXYCYCLINE HYCLATE 100 MG CAP PO SCH (08:41)
[2023-02-11] MEDS: FLUCONAZOLE 100 MG TAB PO SCH (08:41)
[2023-02-11] MEDS: PANTOprazole 40 MG TAB PO SCH (08:42)
[2023-02-11] MEDS: ADVANCED PROBIOTIC 1250 MG CAPSULE PO SCH (08:42)
[2023-02-11] MEDS: TAMSULOSIN HCL 0.4 MG CAP PO SCH (08:42)
[2023-02-11] MEDS: INSULIN ASPART PER UNIT CHARGE SC SCH (08:48)
[2023-02-11] MEDS: LANTUS PER UNIT CHARGE SQ SCH (08:49)
--- NOTE | 2023-02-11 09:59 | Discharge Summary ---
Date of Service February 11, 2023 Admission HPI Per Admitting Provider 87-year-old female with PMH of HTN, mild aortic stenosis, HLD, T2DM insulin requiring, urolithiasis who was recently admitted & discharged on 01/20/2023 for acute complicated UTI/obstructive uropathy ISO history of recurrent urolithiasis and was discharged on cefdinir course. Patient did get the stent at that admission, underwent lithotripsy and stent exchange on 02/01 presented to the ED today with complaint of nausea, dizziness, shivering, vomiting, poor appetite since Sunday night. Patient also reports transient left flank pain on Sunday night which improved by today. Patient denies any pain or burning with passing urine, denies any diarrhea. Patient states that she has not measured her temperature at home. Denies sore throat/cough/chest pain/palpitations/abdominal pain. Patient denies smoking tobacco/using alcohol/using recreational drugs. Medications discussed with the patient at bedside. Full code Plan of care discussed with the patient at bedside, she voiced understanding and was agreeable to the plan of care. Admission Exam Per Admitting Provider GENERAL: Comfortable, pleasant, obese, looks younger than stated age, no respiratory distress SKIN: Normal color, warm HEENT: Woody palpebral conjunctivae, no ptosis, dry buccal mucosa NECK : Supple, short neck, no tenderness CHEST : CTA, no tenderness HEART : RRR, no obvious murmurs ABDOMEN: soft, nontender. EXTREMITIES : Minimal LE swelling, no LE tenderness, no other conspicuous deformities noted NEUROLOGIC : Coherent, no facial asymmetry, no other gross focality No CV angle tenderness. Principal Diagnosis UTI Discharge Exam General Appearance:Moderately built and nourished, no apparent distress Head: normocephalic, Atraumatic Eyes: normal inspection, EOMI Neck: supple, Trachea midline Respiratory/Chest: Normal breath sounds, CTA, No accessory muscle use Cardiovascular: S1, S2, + murmur Abdomen/GI:Soft, Non tender, Bowel sounds present Extremities/Musculoskeletal:normal inspection, no edema Neurologic/Psych:AAOX3, grossly no focal neurological deficits, +Chronic intermittent tremor Skin: normal color, warm Discharge Data Allergies Allergy/AdvReac Type Severity Reaction Status Date / Time No Known Allergies Allergy Verified 02/05/23 17:34 Consultations 02/05/23 17:25 ED Decision to Admit Stat 02/05/23 20:34 Consult Urology Routine 02/09/23 12:45 Consult Infectious Diseases Routine Ordered Studies 02/05/23 13:52 CT Abd and Pelvis [CT abd pelvis wo con] Stat FINDINGS: A few bibasilar linear densities likely representing subsegmental atelectasis or scarring. No pneumoperitoneum. No pneumatosis. No acute fractures. There is a tiny hiatus hernia again noted. Grade 1 anterolisthesis of L4 on L5 with degenerative changes within the lumbar spine. The unenhanced liver, gallbladder, pancreas, spleen, and adrenal glands unremarkable. There is a punctate stone within the right kidney on image 101. Stable 1.6 cm hypodense lesion within the lower pole the right kidney. This favors a cyst. No right- sided hydronephrosis. No retroperitoneal lymphadenopathy. Normal caliber abdominal aorta with mild calcified plaque. No pelvic lymphadenopathy or pelvic free fluid. Mild bladder wall thickening with adjacent fat stranding. Prior hysterectomy. Interval placement of a left ureteral stent which appears in good position. There is a 1 mm stone remaining within the proximal left ureter a djacent to the ureteral stent best seen on image 129. There are multiple left renal calculi noted which may represent fragmentation of the previous identified left UPJ stone. The dominant fragment within the lower pole measures 6 mm. Urothelial thickening within the left renal pelvis and left ureter with adjacent fat stranding has slightly progressed. Mild left perinephric edema/fat stranding has also slightly progressed. Interval improvement in the left-sided hydronephrosis with mild fullness within the left renal collecting system remaining. Suboptimal evaluation for bowel pathology due to the lack of intravenous and oral contrast. However, there is no definite bowel wall thickening or obstruction. Colonic diverticulosis. No evidence for acute diverticulitis. IMPRESSION: 1. Interval fragmentation of the left UPJ stone seen on the prior study with multiple stone fragments now seen within the left renal collecting system. There is also a 1 mm stone remaining within the left ureteropelvic junction adjacent to the left ureteral stent. Overall, the left-sided hydronephrosis has significantly improved in the interval. 2. Urothelial thickening within the left renal pelvis and left ureter with mild adjacent fat stranding has slightly progressed. This could be reactive to the recent stent placement. A superimposed pyelitis/pyelonephritis could also have a similar appearance. Recommend correlation with urinalysis. 3. Mild bladder wall thickening which could represent a cystitis. 4. No bowel wall thickening or obstruction. 5. Right-sided nephrolithiasis. No right-sided hydronephrosis. 6. Additional findings as described above. Hospital Course (1) UTI (urinary tract infection): Plan Complicated UTI H/O Obstructive uropathy, S/P lithotripsy/stent exchange on 02/01/2023 UTI as a complication of urological procedure Concern for pyelitis/cystitis/pyelonephritis Sepsis POA following lithotripsy/stent exchange on 02/01/2023 Suspected Bacteremia secondary to above 01/17/23 urine culture grew pansensitive E. coli. Was placed on cefdinir on discharge --CT ABD:Interval fragmentation of the left UPJ stone seen on the prior study with multiple stone fragments now seen within the left renal collecting system. There is also a 1 mm stone remaining within the left ureteropelvic junction adjacent to the left ureteral stent. Overall, the left-sided hydronephrosis has significantly improved in the interval. Urothelial thickening within the left renal pelvis and left ureter with mild adjacent fat stranding has slightly progressed. This could be reactive to the recent stent placement. A superimposed pyelitis/pyelonephritis could also have a similar appearance. Recommend correlation with urinalysis. Mild bladder wall thickening which could represent a cystitis. No bowel wall thickening or obstruction. Right-sided nephrolithias is. No right-sided hydronephrosis. -- Blood culture 05/06 growing alpha strep not strep pneumo /Enterococcus, and coag negat. staph -- Urine culture from 01/29/2023 growing yeast not Arleth --urine cultx from 02/05 - mixed cesario, likely skin cesario --BioFire suggestive of staph, strep species. --Repeat blood cultures negative to date --ECHO: Mild concentric LVH. EF 55 to 60%. Grade 1 diastolic dysfunction. Aortic valve leaflets are moderately calcified with mild restriction leaflet mobility, minimal stenosis. Trace aortic regurgitation. Moderate to severe mitral annular calcification. Mitral valve leaflets are thickened with redundant mitral valve chordae. Trace mitral and tricuspid regurgitation. No valvular vegetation identified. -- Continued IV Rocephine while inpt Appreciate urology input Bladder scan as needed Continued fluconazole as recommended by urology No intervention currently needed per urology IV fluids as needed Clinically improved , discussed w/ ID - can discharge w/o any more abx or antifungals Mild hyponatremia Due to GI losses Nausea, vomiting resolved Advance diet as tolerated Monitor sodium levels Sodium 141 Hypertension--hold antihypertensives given lower BP Mood disorder Vitamin B12 deficiency Continue home medications DM II Continue insulin per protocol Monitor BGs H/O Stills Disease As per patient Monitor Total Time Total Time Spent Total Time Spent (In Minutes): 40 Discharge Plan Discharge Items Patient Disposition: Home - Self-Care Reason For Visit: KIDNEY STONE Discharge Diagnosis: UTI Activity: Per Instructions section Non-emergency contact: Primary Care Provider Call non-emergency contact if: you have any medication questions and your symptoms worsen Follow-up/Referrals: Stephen Tompkins DO [Primary Care Provider] - (Date & Time 02/15/2023 2:20 PM Provider Stephen Tompkins DO [facility] ) Diet: Carb Consistent or DM2 Addtl Attending Provider Instructions: Follow-up with your primary care physician within 1 week. The appointment was scheduled for you for 02/15/2023. Your blood pressure has been on lower side - do not take losartan and felodipine until further discussed with your primary care doctor at your next appointment. You can take guaifenesin for next several days to help with cough. Pending Studies at Discharge: Yes Studies:: final blood cultx Stand-Alone Forms: My [facility] [employer], Smoking Cessation Medications and DC Order Prescriptions: New guaifenesin 600 mg tablet extended release 12hr 600 mg PO BID Qty: 10 0RF Continued cyanocobalamin (vitamin B-12) [Vitamin B-12] 1,000 mcg Tablet 1,000 mcg PO DAILY triamcinolone acetonide 0.1 % cream 1 applic TOPICAL BID PRN (Reason: .flare ups) famotidine 20 mg tablet 20 mg PO BID omeprazole 20 mg capsule,delayed release(DR/EC) 20 mg PO QAM fluoxetine 20 mg capsule 20 mg PO QAM cholecalciferol (vitamin D3) [Vitamin D3] 10 mcg (400 unit) Tablet 10 mcg PO DAILY trolamine salicylate [Aspercreme] 10 % Cream 1 applic TOPICAL QID PRN (Reason: Pain) insulin glargine [Lantus Solostar U-100 Insulin] 100 unit/mL (3 mL) insulin pen 15 unit SUBCUT QPM Jardiance 25 mg tablet 25 mg PO QAM Ozempic 0.25 mg or 0.5 mg (2 mg/3 mL) pen injector 0.5 mg SUBCUT Q7D Patient Comments: tuesdays Rx Instructions: tamsulosin 0.4 mg capsule 0.4 mg PO QAM Held felodipine 5 mg tablet extended release 24 hr 5 mg PO QAM Hold Instructions: Resume on 02/16/23. until seen by PCP losartan 25 mg tablet 25 mg PO QAM Hold Instructions: Resume on 02/16/23. until seen by PCP Discharge Orders: Discharge Order (Routine); Ordered 02/11/23 Ordered By: Camacho Kasper Admission Data Admit Date/Time: 02/05/23 17:46 Attending Provider: Camacho Kasper Admit Provider: Nabor Klein Primary Care Provider: Stephen Tompkins Other Providers: Nabor Klein; Sajan Mendoza; Asher Mcgee; Gerardo Francis; Kristine Blancas; Burak Berumen I.; Serge Hadley II; Radha Callahan; Elia Mcfarland; Faizan Crockett; Cristhian Norton
[2023-02-11] MEDS: DICLOFENAC SOD 1% GEL 100 GM TUBE EXT PRN (10:36)
== END 2023-02-11 11:36 | disposition home or self-care (01) | DRG 863 ==
LOC: ED 13:00 → EDINP 17:46 → SUATTDRO 17:46 → 2N 20:34